=== PATIENT | female | born 1985 | race Caucasian/White ===

== ENCOUNTER 2016-12-05 08:51 | Emergency (ER) | payer OTHER ==
[2016-12-05] MEDS ORDERED: Sodium Chloride 0.9% 1000 ML 1,000 ML IV STA (09:17)
[2016-12-05] MEDS ORDERED: BENADRYL 50 MG/ML IV ONE (09:17)
[2016-12-05] MEDS ORDERED: Zofran 4 MG/2 ML VIAL IV ONE (09:17)
[2016-12-05] MEDS ORDERED: Hydromorphone 1 mg/ml Ampule IV ONE (09:17)
[2016-12-05] MEDS ORDERED: Zofran 4 MG/2 ML VIAL ONE (09:21)
[2016-12-05] MEDS ORDERED: BENADRYL 50 MG/ML ONE (09:21)
[2016-12-05] MEDS ORDERED: Sodium Chloride 0.9% 1000 ML 1,000 ML ONE (09:21)
[2016-12-05] MEDS ORDERED: Hydromorphone 1 mg/ml Ampule ONE (09:21)
[2016-12-05 09:22] LABS: BASOPHIL % 0.5 % (0.0-0.4); Eosinophil % 1.8 % (0.00-5.0); Granulocytes % 58.7 % (36.0-66.0); Mean Cell Volume 88.6 fl (78-100); Platelet Count 212 K/mm3 (150-450); Red Blood Count 4.73 M/mm3 (4.1-5.4); Red Cell Distribution Width 13.4 % (11.5-14.0); White Blood Count 6.1 K/mm3 (4.0-10.5)
--- NOTE | 2016-12-05 09:23 | ERPHSYRPT ---
- History of Present Illness Time Seen by Provider: 12/05/16 09:11 Historian: patient, family Patient Subjective Stated Complaint: PT REPORTS RIGHT FLANK PAIN RADIATING TO UPPER BACK/SHOULDER AREA-DENIES N/V-REPORTS LAST BM 9 DAYS AGO-OTC MEDS NOT EFFECTIVE-REPORTS PAIN INCREASES WITH EATING OR DRINKING Triage Nursing Assessment: PT PINK WARM ET [id number] TENDER TO PALP-BOWEL SOUNDS HYPOACTIVE-RESP EASY ET NONLABORED Physician History: CC: RUQ abd pain Hx: 31 y/o patient of [facility]. She has RUQ abd pain for 5 month, worse in intensity, aching in nature. Harlan worse. Worse with foods. No vomiting. Constipated for 9 days with no results of stool with mag citrate. No fever or chills. Prior C/S X3 and BTL. Normal LMP. No cough. Abdominal Pain Onset Location: RUQ Allergies/Adverse Reactions: No Known Drug Allergies Allergy (Unverified 12/05/16 09:01) Hx Tetanus, Diphtheria Vaccination/Date Given: No Hx Influenza Vaccination/Date Given: No Hx Pneumococcal Vaccination/Date Given: No Immunizations Up to Date: Yes - Review of Systems Constitutional: Malaise, No Fever, No Chills Eyes: No Symptoms Ears, Nose, & Throat: No Symptoms Respiratory: No Cough, No Dyspnea Cardiac: No Chest Pain Abdominal/Gastrointestinal: Abdominal Pain (RUQ), Nausea, Constipation, No Vomiting, No Diarrhea Genitourinary Symptoms: No Dysuria Musculoskeletal: No Back Pain Skin: No Rash Neurological: No Focal Weakness, No Parasthesia All Other Systems: Reviewed and Negative - Past Medical History Pertinent Past Medical History: No - Past Surgical History Past Surgical History: Yes Female Surgical History: Section, Tubal Ligation - Social History Smoking Status: Never smoker Exposure to second hand smoke: No Drug Use: none Patient Lives Alone: No - Female History Hx Last Menstrual Period: LAST MONTH - Nursing Vital Signs Nursing Vital Signs: Initial Vital Signs Temperature 99.0 F 12/05/16 08:58 Pulse Rate 63 12/05/16 08:58 Respiratory Rate 18 12/05/16 08:58 Blood Pressure 122/71 12/05/16 08:58 O2 Sat by Pulse Oximetry 96 12/05/16 08:58 Pain Scale Pain Intensity 5 - Physical Exam General Appearance: alert Eye Exam: PERRL/EOMI Ears, Nose, Throat Exam: normal ENT inspection, moist mucous membranes Neck Exam: normal inspection, non-tender, supple Respiratory Exam: normal breath sounds Cardiovascular Exam: regular rate/rhythm Gastrointestinal/Abdomen Exam: soft, tenderness (RUQ), guarding (mild RUQ), No distention, No mass Back Exam: normal inspection, No CVA tenderness Extremity Exam: normal inspection, normal range of motion Neurologic Exam: alert, 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, cooperative, sensation nml, No motor deficits Skin Exam: warm, dry, No rash SpO2 Interpretation: normal SpO2: 96 Oxygen Delivery: Room Air - Course Nursing assessment & vital signs reviewed: Yes EKG Interpreted by Me: RATE (67), Sinus Rhythm, NORMAL AXIS, NORMAL INTERVALS ( QTc 405), NORMAL QRS, NORMAL ST-T - Radiology Exams AAS X-ray Interpretation: Interpreted by me (no free air or obstructions. Large stool burden.) Ordered Tests: Active Orders 24 hr Category Date Time Status IV Insertion STAT Care 12/05/16 09:11 Active NPO (ED) STAT Care 12/05/16 09:11 Active OBSTR/ACUTE ABDOMEN SERIES Stat Exams 12/05/16 09:17 Taken CBC W DIFF Stat Lab 12/05/16 09:10 Completed CMP Stat Lab 12/05/16 09:10 Completed HCG QUALITATIVE,SERUM Stat Lab 12/05/16 09:10 Completed LIPASE Stat Lab 12/05/16 09:10 Completed UA W/RFX UR CULTURE Stat Lab 12/05/16 09:10 Completed Medication Summary Generic Name Dose Route Start Last Admin Trade Name Freq PRN Reason Stop Dose Admin Sodium Chloride 1,000 mls @ 999 mls/hr 12/05/16 09:17 12/05/16 09:35 Sodium Chloride 0.9% 1000 Ml IV 12/05/16 10:17 999 mls/hr .Q1H1M STA Administration Discontinued Medications Generic Name Dose Route Start Last Admin Trade Name Freq PRN Reason Stop Dose Admin Diphenhydramine HCl 25 mg 12/05/16 09:17 12/05/16 09:36 Benadryl 50 Mg/Ml IV 12/05/16 09:18 25 mg STAT ONE Administration Diphenhydramine HCl Confirm 12/05/16 09:21 Benadryl 50 Mg/Ml Administered 12/05/16 09:22 Dose 50 mg .ROUTE .STK-MED ONE Hydromorphone HCl 1 mg 12/05/16 09:17 12/05/16 09:37 Hydromorphone 1 Mg/Ml Ampule IV 12/05/16 09:18 1 mg STAT ONE Administration Hydromorphone HCl Confirm 12/05/16 09:21 Hydromorphone 1 Mg/Ml Ampule Administered 12/05/16 09:22 Dose 1 mg .ROUTE .STK-MED ONE Sodium Chloride Confirm 12/05/16 09:21 Sodium Chloride 0.9% 1000 Ml Administered 12/05/16 09:22 Dose 1,000 mls @ ud .ROUTE .STK-MED ONE Ondansetron HCl 4 mg 12/05/16 09:17 12/05/16 09:37 Zofran 4 Mg/2 Ml Vial IV 12/05/16 09:18 4 mg STAT ONE Administration Ondansetron HCl Confirm 12/05/16 09:21 Zofran 4 Mg/2 Ml Vial Administered 12/05/16 09:22 Dose 4 mg .ROUTE .STK-MED ONE Lab/Rad Data: Laboratory Result Diagrams 12/05/16 09:10 12/05/16 09:10 Laboratory Results 12/05/16 12/05/16 12/05/16 Range/Units 09:10 09:10 09:10 WBC (4.0-10.5) K/mm3 RBC (4.1-5.4) M/mm3 Hgb (12.0-16.0) gm/dl Hct (35-47) % MCV (78-100) fl MCH (26-32) pg MCHC (32-36) g/dl RDW (11.5-14.0) % Plt Count (150-450) K/mm3 MPV (6-9.5) fl Gran % (36.0-66.0) % Lymphocytes % (24.0-44.0) % Monocytes % (0.0-12.0) % Eosinophils % (0.00-5.0) % Basophils % (0.0-0.4) % Basophils # (0-0.4) Sodium 140 (136-145) mEq/L Potassium 4.1 (3.5-5.1) mEq/L Chloride 106 (98-107) mEq/L Carbon Dioxide 25.1 (21-32) mEq/L Anion Gap 12.5 (5-15) MEQ/L BUN 14 (9-20) mg/dL Creatinine 0.91 (0.55-1.30) mg/dl Estimated GFR > 60 ML/MIN Glucose 90 (70-110) MG/DL Calcium 8.8 (8.5-10.1) mg/dL Total Bilirubin 0.50 (0.2-1.0) mg/dL AST 15 (15-37) U/L ALT 16 (12-78) U/L Alkaline Phosphatase 45 L (46-116) U/L Serum Total Protein 7.1 (6.4-8.2) gm/dL Albumin 3.7 (3.4-5.0) g/dL Lipase 156 (73-393) U/L Serum , Qual NEGATIVE (Negative) Ur Collection Type CLEAN CATCH Urine Color YELLOW (YELLOW) Urine Appearance HAZY (CLEAR) Urine pH 7.0 (5-6) Ur Specific [place] 1.005 (1.005-1.025) Urine Protein NEGATIVE (Negative) Urine Ketones NEGATIVE (NEGATIVE) Urine Blood NEGATIVE (0-5) Dusty/ul Urine Nitrite NEGATIVE (NEGATIVE) Urine Bilirubin NEGATIVE (NEGATIVE) Urine Urobilinogen NORMAL (0-1) mg/dL Ur Leukocyte Esterase NEGATIVE (NEGATIVE) Urine Glucose NEGATIVE (NEGATIVE) mg/dL Specimen Received 12/05/16 0910 12/05/16 Range/Units 09:10 WBC 6.1 (4.0-10.5) K/mm3 RBC 4.73 (4.1-5.4) M/mm3 Hgb 13.7 (12.0-16.0) gm/dl Hct 41.9 (35-47) % MCV 88.6 (78-100) fl MCH 29.0 (26-32) pg MCHC 32.7 (32-36) g/dl RDW 13.4 (11.5-14.0) % Plt Count 212 (150-450) K/mm3 MPV 11.0 H (6-9.5) fl Gran % 58.7 (36.0-66.0) % Lymphocytes % 30.0 (24.0-44.0) % Monocytes % 9.0 (0.0-12.0) % Eosinophils % 1.8 (0.00-5.0) % Basophils % 0.5 (0.0-0.4) % Basophils # 0.03 (0-0.4) Sodium (136-145) mEq/L Potassium (3.5-5.1) mEq/L Chloride (98-107) mEq/L Carbon Dioxide (21-32) mEq/L Anion Gap (5-15) MEQ/L BUN (9-20) mg/dL Creatinine (0.55-1.30) mg/dl Estimated GFR ML/MIN Glucose (70-110) MG/DL Calcium (8.5-10.1) mg/dL Total Bilirubin (0.2-1.0) mg/dL AST (15-37) U/L ALT (12-78) U/L Alkaline Phosphatase (46-116) U/L Serum Total Protein (6.4-8.2) gm/dL Albumin (3.4-5.0) g/dL Lipase (73-393) U/L Serum , Qual (Negative) Ur Collection Type Urine Color (YELLOW) Urine Appearance (CLEAR) Urine pH (5-6) Ur Specific [place] (1.005-1.025) Urine Protein (Negative) Urine Ketones (NEGATIVE) Urine Blood (0-5) Dusty/ul Urine Nitrite (NEGATIVE) Urine Bilirubin (NEGATIVE) Urine Urobilinogen (0-1) mg/dL Ur Leukocyte Esterase (NEGATIVE) Urine Glucose (NEGATIVE) mg/dL Specimen Received - Progress Progress Note: 12/05/16 10:05 Labs reassuring. Sono not readily available due to holiday. She needs GB sonogram. No sign of acute cholecystitis. Discussed need for GB sono, follow up , and constipation treatment. Instr given. She actually has not seen [facility] yet and can follow up locally if she so desires. Referral sheet given. Counseled pt/family regarding: lab results, diagnosis, need for follow-up, rad results - Departure Time of Disposition: 10:06 Departure Disposition: Home Clinical Impression: RUQ abdominal pain, Biliary colic Constipation Qualifiers: Constipation type: slow transit constipation Qualified Code(s): K59.01 - Slow transit constipation Condition: Stable Critical Care Time: No Referrals: DOCTOR,NO FAMILY [Primary Care Provider] - Instructions: Abdominal Pain-Adult, Constipation, General Gallbladder Conditions Additional Instructions: Use miralax/prune juice as instructed. You need to follow up with a primary provider this week and obtain gallbladder sonogram. Low fat diet. No driving today. ABDOMINAL PAIN 1. There are several different causes for abdominal pain, some of which may not be able to be identified on initial examination. 2. The important thing to remember is that bodily functions can change in a short period of time. If you notice any of the following symptoms, return to the emergency department or consult your doctor immediately: A. Worsening pain or no improvement in the next 12 hours. B. Increasing, severe abdominal pain C. Blood in stool D. Black stools E. Persistent vomiting F. Fever or chills or other symptoms Prescriptions: Polyethylene Glycol 3350 [Miralax Powder] 17 g PO DAILY #1 bottle
[2016-12-05 09:36] LABS: Bilirubin NEGATIVE (NEGATIVE); Collection Type CLEAN CATCH; Glucose NEGATIVE (NEGATIVE); Leukocyte Esterase NEGATIVE (NEGATIVE)
[2016-12-05 09:37] LABS: ADD URINE CULTURE? NO (NO); Blood NEGATIVE Ery/ul (0-5); COMPLETE URINE MICROSCOPIC? NO
[2016-12-05 09:42] LABS: ALBUMIN 3.7 g/dL (3.4-5.0); ALKALINE PHOSPHATASE 45 U/L (46-116); ANION GAP 12.5 MEQ/L (5-15); BLOOD UREA NITROGEN 14 mg/dL (9-20); CHLORIDE 106 mEq/L (98-107); Carbon Dioxide 25.1 mEq/L (21-32); Glucose 90 MG/DL (70-110); LIPASE 156 U/L (73-393); Potassium 4.1 mEq/L (3.5-5.1); SGOT/AST 15 U/L (15-37); SGPT/ALT 16 U/L (12-78); SODIUM 140 mEq/L (136-145); Total Protein 7.1 gm/dL (6.4-8.2)
[2016-12-05 10:08] VITALS: O2SAT 96
--- NOTE | 2016-12-05 10:10 | XRAY ---
Indication: Right upper quadrant abdominal pain. Comparison: None 2 views of the abdomen nonacute and nonobstructed with large amount of diffuse scattered colonic fecal debris. Solid organs and osseous structures unremarkable. Single PA chest demonstrates normal heart and lungs with right base calcified granuloma. Bony thorax intact with minimal double curvature scoliosis. Impression: Fecal stasis without obstruction. Normal one view chest.
[2016-12-05 10:18] VITALS: BP 111/66; PULSE 60
== END 2016-12-05 10:17 | disposition home or self-care (01) ==
LOC: ED 08:51
DX: R10.11 Right upper quadrant pain (principal); K80.50 Calculus of bile duct without cholangitis or cholecystitis without obstruction; R11.0 Nausea; K59.00 Constipation, unspecified
CPT/HCPCS: 36000; 36415; 74022; 80053; 81002; 83690; 84703; 85025; 93005; 96360; 96374; 96375; 99284; J1170; J1200; J2405

== ENCOUNTER 2016-12-06 12:11 | Emergency (ER) | payer OTHER ==
[2016-12-06 12:32] VITALS: PULSE 74
[2016-12-06] MEDS ORDERED: Zofran 4 MG/2 ML VIAL IV ONE (12:42)
[2016-12-06] MEDS ORDERED: Sodium Chloride 0.9% 1000 ML 1,000 ML IV STA (12:42)
--- NOTE | 2016-12-06 12:49 | ERPHSYRPT ---
- History of Present Illness Time Seen by Provider: 12/06/16 12:38 Historian: patient Exam Limitations: no limitations Patient Subjective Stated Complaint: vomiting today several times. seen yesterday for same problem. thinks her gallbladder is bad. temp at home 99.1. no bm for 10 days. Triage Nursing Assessment: to room per w/c. skin w/d, color normal. resp easy. abd soft, tender ruq. normal bowel sounds. Physician History: 31 year old female reports to the emergency department complaining of vomiting, inability to tolerate po intake for several days. she has abdominal pain in the ruq, was seen yesterday and told she was constipated, given miralax for constipation. hasn't had a bowel movement in the last 10 days. she denies fever , no hematemesis. Timing/Duration: week(s) Activities at Onset: none Quality: cramping Abdominal Pain Onset Location: RUQ Pain Radiation: no radiation Severity of Pain-Max: moderate Severity of Pain-Current: moderate Modifying Factors: Improves With: nothing Associated Symptoms: nausea, vomiting, No chest pain, No diaphoresis, No diarrhea Allergies/Adverse Reactions: No Known Drug Allergies Allergy (Verified 12/06/16 12:27) Home Medications: Fiber [Fiber Off] 1 each PO DAILY 12/06/16 [History] Hx Tetanus, Diphtheria Vaccination/Date Given: Yes Hx Influenza Vaccination/Date Given: No Hx Pneumococcal Vaccination/Date Given: No - Review of Systems Constitutional: No Fever, No Chills Respiratory: No Cough, No Dyspnea Cardiac: No Chest Pain, No Edema, No Syncope Abdominal/Gastrointestinal: Abdominal Pain, Nausea, Vomiting, Constipation Genitourinary Symptoms: No Dysuria Skin: No Rash All Other Systems: Reviewed and Negative - Past Medical History Pertinent Past Medical History: No - Past Surgical History Past Surgical History: Yes Female Surgical History: Section, Tubal Ligation - Social History Smoking Status: Never smoker Exposure to second hand smoke: No Drug Use: none Patient Lives Alone: No - Female History Hx Last Menstrual Period: one month ago - Nursing Vital Signs Nursing Vital Signs: Initial Vital Signs Temperature 99.4 F 12/06/16 12:19 Pulse Rate 74 12/06/16 12:19 Respiratory Rate 16 12/06/16 12:19 Blood Pressure 134/76 12/06/16 12:19 O2 Sat by Pulse Oximetry 98 12/06/16 12:19 Pain Scale Pain Intensity 7 - Physical Exam General Appearance: no apparent distress, alert Eye Exam: PERRL/EOMI, eyes nml inspection Respiratory Exam: normal breath sounds, lungs clear, No respiratory distress Cardiovascular Exam: regular rate/rhythm, normal heart sounds Gastrointestinal/Abdomen Exam: soft, tenderness (ruq mild), No distention Back Exam: normal inspection, normal range of motion, No CVA tenderness, No vertebral tenderness Extremity Exam: normal inspection, normal range of motion, pelvis stable Skin Exam: normal color, warm, dry SpO2 Interpretation: normal SpO2: 98 Oxygen Delivery: Room Air Ordered Tests: Active Orders 24 hr Category Date Time Status Enema STAT Care 12/06/16 12:42 Active IV Insertion STAT Care 12/06/16 12:42 Active GALLBLADDER [US] Stat Exams 12/06/16 12:43 Completed AMYLASE Stat Lab 12/06/16 12:50 Completed CBC W DIFF Stat Lab 12/06/16 12:50 Completed CMP Stat Lab 12/06/16 12:50 Completed HCG QUALITATIVE,SERUM Stat Lab 12/06/16 12:50 Completed LIPASE Stat Lab 12/06/16 12:50 Completed UA W/RFX UR CULTURE Stat Lab 12/06/16 14:00 Completed Medication Summary Discontinued Medications Generic Name Dose Route Start Last Admin Trade Name Freq PRN Reason Stop Dose Admin Sodium Chloride 1,000 mls @ 999 mls/hr 12/06/16 12:42 12/06/16 13:07 Sodium Chloride 0.9% 1000 Ml IV 12/06/16 13:42 999 mls/hr .Q1H1M STA Administration Sodium Chloride Confirm 12/06/16 13:04 Sodium Chloride 0.9% 1000 Ml Administered 12/06/16 13:05 Dose 1,000 mls @ ud .ROUTE .STK-MED ONE Ondansetron HCl 4 mg 12/06/16 12:42 12/06/16 13:07 Zofran 4 Mg/2 Ml Vial IV 12/06/16 12:43 4 mg STAT ONE Administration Ondansetron HCl Confirm 12/06/16 13:04 Zofran 4 Mg/2 Ml Vial Administered 12/06/16 13:05 Dose 4 mg .ROUTE .STK-MED ONE Lab/Rad Data: Laboratory Result Diagrams 12/06/16 12:50 09/05/17 12:50 Laboratory Results 12/06/16 12/06/16 12/06/16 Range/Units 14:00 12:50 12:50 WBC (4.0-10.5) K/mm3 RBC (4.1-5.4) M/mm3 Hgb (12.0-16.0) gm/dl Hct (35-47) % MCV (78-100) fl MCH (26-32) pg MCHC (32-36) g/dl RDW (11.5-14.0) % Plt Count (150-450) K/mm3 MPV (6-9.5) fl Gran % (36.0-66.0) % Lymphocytes % (24.0-44.0) % Monocytes % (0.0-12.0) % Eosinophils % (0.00-5.0) % Basophils % (0.0-0.4) % Basophils # (0-0.4) Sodium 143 (136-145) mEq/L Potassium 4.4 (3.5-5.1) mEq/L Chloride 108 H (98-107) mEq/L Carbon Dioxide 26.6 (21-32) mEq/L Anion Gap 12.6 (5-15) MEQ/L BUN 9 (9-20) mg/dL Creatinine 0.83 (0.55-1.30) mg/dl Estimated GFR > 60 ML/MIN Glucose 87 (70-110) MG/DL Calcium 9.1 (8.5-10.1) mg/dL Total Bilirubin 0.40 (0.2-1.0) mg/dL AST 15 (15-37) U/L ALT 18 (12-78) U/L Alkaline Phosphatase 44 L (46-116) U/L Serum Total Protein 7.4 (6.4-8.2) gm/dL Albumin 3.8 (3.4-5.0) g/dL Amylase 55 (25-115) U/L Lipase 133 (73-393) U/L Serum , Qual NEGATIVE (Negative) Ur Collection Type CLEAN CATCH Urine Color YELLOW (YELLOW) Urine Appearance CLEAR (CLEAR) Urine pH 6.0 (5-6) Ur Specific [place] 1.005 (1.005-1.025) Urine Protein NEGATIVE (Negative) Urine Ketones NEGATIVE (NEGATIVE) Urine Blood NEGATIVE (0-5) Dusty/ul Urine Nitrite NEGATIVE (NEGATIVE) Urine Bilirubin NEGATIVE (NEGATIVE) Urine Urobilinogen NORMAL (0-1) mg/dL Ur Leukocyte Esterase NEGATIVE (NEGATIVE) Urine Glucose NEGATIVE (NEGATIVE) mg/dL Specimen Received 12/06 141412/06/16 Range/Units 12:50 WBC 6.8 (4.0-10.5) K/mm3 RBC 4.80 (4.1-5.4) M/mm3 Hgb 13.9 (12.0-16.0) gm/dl Hct 42.8 (35-47) % MCV 89.2 (78-100) fl MCH 29.0 (26-32) pg MCHC 32.5 (32-36) g/dl RDW 13.2 (11.5-14.0) % Plt Count 220 (150-450) K/mm3 MPV 10.7 H (6-9.5) fl Gran % 65.8 (36.0-66.0) % Lymphocytes % 27.5 (24.0-44.0) % Monocytes % 5.3 (0.0-12.0) % Eosinophils % 1.3 (0.00-5.0) % Basophils % 0.1 (0.0-0.4) % Basophils # 0.01 (0-0.4) Sodium (136-145) mEq/L Potassium (3.5-5.1) mEq/L Chloride (98-107) mEq/L Carbon Dioxide (21-32) mEq/L Anion Gap (5-15) MEQ/L BUN (9-20) mg/dL Creatinine (0.55-1.30) mg/dl Estimated GFR ML/MIN Glucose (70-110) MG/DL Calcium (8.5-10.1) mg/dL Total Bilirubin (0.2-1.0) mg/dL AST (15-37) U/L ALT (12-78) U/L Alkaline Phosphatase (46-116) U/L Serum Total Protein (6.4-8.2) gm/dL Albumin (3.4-5.0) g/dL Amylase (25-115) U/L Lipase (73-393) U/L Serum , Qual (Negative) Ur Collection Type Urine Color (YELLOW) Urine Appearance (CLEAR) Urine pH (5-6) Ur Specific [place] (1.005-1.025) Urine Protein (Negative) Urine Ketones (NEGATIVE) Urine Blood (0-5) Dusty/ul Urine Nitrite (NEGATIVE) Urine Bilirubin (NEGATIVE) Urine Urobilinogen (0-1) mg/dL Ur Leukocyte Esterase (NEGATIVE) Urine Glucose (NEGATIVE) mg/dL Specimen Received - Progress Progress: improved Progress Note: 12/06/16 14:55 patient rechecked and doing well at this time. had good results with enema, pain has improved. discussed normal lab results, prelim gallbladder u/s negative for stones, possible sludge. needs to establish with a PCP for further testing, possible HIDA scan. - Departure Time of Disposition: 14:56 Departure Disposition: Home Clinical Impression: RUQ abdominal pain, Constipation, Gallbladder sludge Condition: Stable Critical Care Time: No Referrals: DOCTOR,NO FAMILY [Primary Care Provider] - Additional Instructions: push clear liquids. avoid fatty/greasy foods and take zofran prn for nausea. return for fever, severe pain, inability to tolerate po. continue miralax as prescribed yesterday for constipation. you need to establish with a primary care provider as soon as possible for possible further testing such as a HIDA scan. Prescriptions: Ondansetron HCl [Zofran] 4 mg PO TID PRN #20 tablet
[2016-12-06 12:59] LABS: BASOPHIL % 0.1 % (0.0-0.4); Eosinophil % 1.3 % (0.00-5.0); Granulocytes % 65.8 % (36.0-66.0); Lymphocytes % 27.5 % (24.0-44.0); Mean Cell Volume 89.2 fl (78-100); Mean Platelet Volume 10.7 fl (6-9.5); Monocytes % 5.3 % (0.0-12.0); Platelet Count 220 K/mm3 (150-450); Red Cell Distribution Width 13.2 % (11.5-14.0); White Blood Count 6.8 K/mm3 (4.0-10.5)
[2016-12-06] MEDS ORDERED: Sodium Chloride 0.9% 1000 ML 1,000 ML ONE (13:04)
[2016-12-06] MEDS ORDERED: Zofran 4 MG/2 ML VIAL ONE (13:04)
[2016-12-06 13:43] LABS: ALBUMIN 3.8 g/dL (3.4-5.0); ALKALINE PHOSPHATASE 44 U/L (46-116); ANION GAP 12.6 MEQ/L (5-15); BLOOD UREA NITROGEN 9 mg/dL (9-20); CHLORIDE 108 mEq/L (98-107); Carbon Dioxide 26.6 mEq/L (21-32); Glucose 87 MG/DL (70-110); LIPASE 133 U/L (73-393); Potassium 4.4 mEq/L (3.5-5.1); SGOT/AST 15 U/L (15-37); SGPT/ALT 18 U/L (12-78); SODIUM 143 mEq/L (136-145); Total Protein 7.4 gm/dL (6.4-8.2)
[2016-12-06 14:39] LABS: Bilirubin NEGATIVE (NEGATIVE); Blood NEGATIVE Ery/ul (0-5); Collection Type CLEAN CATCH; Glucose NEGATIVE (NEGATIVE); Leukocyte Esterase NEGATIVE (NEGATIVE)
[2016-12-06 14:40] LABS: ADD URINE CULTURE? NO (NO); COMPLETE URINE MICROSCOPIC? NO
--- NOTE | 2016-12-06 15:13 | XRAY ---
Exam: Gallbladder ultrasound from 12/06/2016. Comparison: None. Indication: Abdominal pain, vomiting. Findings: The gallbladder appears of normal size. There is some movable, intraluminal biliary sludge within the posterior dependent portion of the gallbladder lumen. Some concomitant tiny specular reflectors could represent tiny associated gallstones. However, these do not shadow, perhaps due to their small size. The gallbladder wall measures 2 mm which is normal. No pericholecystic edema or fluid is seen. The proximal common bile the measures 5.3 mm which is within normal limits. No intrahepatic biliary duct distention is seen. The liver appears of unremarkable size. No intrahepatic biliary duct distention is seen. The right kidney measures 10.5 cm in length and reveals no mass or hydronephrosis. The pancreas reveals no significant abnormality. Impression: 1. There is a mild amount of movable intraluminal biliary sludge within the posterior dependent portion of the gallbladder. Some concomitant tiny gallstones mixed in with the sludge are difficult to exclude. 2. No gallbladder enlargement, gallbladder wall thickening, or biliary duct distention is seen.
[2016-12-06 15:30] VITALS: BP 112/27; O2SAT 100
== END 2016-12-06 15:32 | disposition home or self-care (01) ==
LOC: ED 12:11
DX: R10.11 Right upper quadrant pain (principal); K59.00 Constipation, unspecified; K82.8 Other specified diseases of gallbladder
CPT/HCPCS: 36000; 36415; 76705; 80053; 81002; 82150; 83690; 84703; 85025; 96360; 96374; 99284; J2405

== ENCOUNTER 2017-01-16 10:59 | Day surgery (SDC) | payer OTHER ==
--- NOTE | 2017-01-16 09:24 | HP ---
DATE OF SURGERY: 01/16/2017 HISTORY OF PRESENT ILLNESS: The patient is a 31 year-old the past five months or so had some right upper quadrant radiating to the shoulder as well as gas and bloating reported feeling worse recently, worse with greasy food and spicy foods. Ultrasound did not show any gallstones, did have some sludge. The HIDA scan had normal ejection fraction 96%. No prior endoscopy. PAST MEDICAL HISTORY: She denies any chronic illnesses. She has had some anxiety and depression. MEDICATIONS: Celexa. ALLERGIES: NKDA. PAST SURGICAL HISTORY: Three sections. FAMILY HISTORY: Cancer. Negative for celiac disease, inflammatory bowel disease. SOCIAL HISTORY: No smoking or alcohol abuse. REVIEW OF SYSTEMS: Twelve systems reviewed per admission assessment. No chest pain or palpitations other systems negative or noncontributory as above and per preadmission questionnaire. PHYSICAL EXAMINATION: GENERAL: No acute distress. HEENT: Sclerae nonicteric. NECK: No JVD. CHEST: Equal excursion, nonlabored breathing. CVS: Regular rate and rhythm. ABDOMEN: Soft. No peritoneal signs. Some mild tenderness. EXTREMITIES: No significant edema. NEURO: Alert, moving extremities symmetrically. No gross motor deficits noted. IMPRESSION: Right upper quadrant pain unclear etiology. I feel she needs to be evaluated for gastritis, ulcer disease, esophagitis or other etiology. If negative, she may need to consider cholecystectomy as she had hyperkalemic, chronic cholecystitis. Either way she needs upper endoscopy possible biopsy first. Risks and benefits explained in detail including but not limited to bleeding or infection, small risk of bowel injury or perforation possibly requiring open procedure, small risk of missed or nondiagnosis or incomplete exam possibly requiring barium enema, other studies or procedures, general risk of anesthesia or sedation. She understands and agrees to the planned procedure and will proceed with upper endoscopy possible biopsy as an outpatient.
[2017-01-16] MEDS ORDERED: Versed 2 MG/2 ML Injection IV ONE (11:00)
[2017-01-16] MEDS ORDERED: DIPRIVAN 200 MG/20 ML IV ONE (11:00)
[2017-01-16] MEDS ORDERED: Lactated Ringers 1,000 ML IV ONE (11:07)
[2017-01-16] MEDS ORDERED: Lactated Ringers 1,000 ML IV SCH (11:30)
[2017-01-16 12:34] VITALS: O2SAT 100
[2017-01-16 13:17] VITALS: BP 122/70; PULSE 57
--- NOTE | 2017-01-16 15:17 | OP ---
SURGERY DATE/TIME: 01/16/2017 1150 PREOPERATIVE DIAGNOSIS: Right upper quadrant upper abdominal pain. Gallbladder work up negative for gallstones. HIDA scan no evidence of decreased ejection fraction. POSTOPERATIVE DIAGNOSIS: Mild gastritis. PROCEDURES: 1) EGD with cold biopsy of small bowel to evaluate for celiac sprue. 2) Cold biopsy of the antrum to evaluate for Helicobacter pylori. SURGEON: Dr. Jann Flynn. ANESTHESIA: MAC. ESTIMATED BLOOD LOSS: Minimal. INDICATIONS: As noted above. Risks and benefits explained in detail and not limited to and consent obtained. DESCRIPTION OF PROCEDURE AND FINDINGS: The patient is taken to the operating room. MAC anesthesia introduced. After official time out and no disagreement with planned procedure the bite block positioned. Video gastroscope easily passed down the esophagus through the patent pylorus to the junction of the second and third portion of the duodenum. On withdrawal of the scope, cold biopsy taken of the small bowel. There was a little bit of flattening of the folds but no signs of any geri ulcers or other mucosal lesions given her vague symptoms. Cold biopsy taken to evaluate for celiac disease in the small bowel. Good hemostasis noted. The scope pulled back in the stomach. She had some minimal to mild gastritis. Cold biopsy taken to evaluate for Helicobacter pylori. Good hemostasis is noted. On retroflex there is no significant hiatal hernia. Gastroesophageal junction seen to be fairly tight against the scope. The scope is straightened. The gastroesophageal junction noted to be about 40 cm. Again, small bowel had been biopsied for sprue. Antrum biopsied for Helicobacter pylori. Otherwise the scope pulled back to gastroesophageal junction noted to be at 40 cm. Z-line was crisp. No signs of any geri esophagitis. No signs of any Guo's. No signs of any other obvious mucosal lesions. The remainder of the esophagus grossly unremarkable. The scope is withdrawn. The patient tolerated the procedure well. Findings discussed with the family out in the waiting area. I will see her back in the office next week to see how she does. If she remains symptomatic will discuss options as she does have some sludge and she could have a hyperkinetic gallbladder. Option of considering cholecystectomy versus referral for endoscopic ultrasound or other work up. I will see her back in the office next week.
== END 2017-01-16 13:20 | disposition home or self-care (01) ==
LOC: SDC 10:59
PROVIDERS: ATTEND Surgery
PROC: 0DB78ZX Excision of Stomach, Pylorus, Via Natural or Artificial Opening Endoscopic, Diagnostic (ICD-10-PCS; principal; 2017-01-16)
PROC: 0DB88ZX Excision of Small Intestine, Via Natural or Artificial Opening Endoscopic, Diagnostic (ICD-10-PCS; 2017-01-16)
DX: K29.70 Gastritis, unspecified, without bleeding (principal)
CPT/HCPCS: 00740; 36415; 88305; J2250; J2704

== ENCOUNTER 2017-05-15 00:49 | Emergency (ER) | payer OTHER ==
--- NOTE | 2017-05-15 01:22 | ERPHSYRPT ---
- History of Present Illness Time Seen by Provider: 05/15/17 01:02 Source: patient Exam Limitations: no limitations Patient Subjective Stated Complaint: pt states she slipped on the ice today and hurt her lt foot. states pain radiates up leg to the knee Triage Nursing Assessment: pt alert and oriented, asnwers questions approp. pt transfer from whellchair to stretcher with no assist, nwb on lt leg. respirations nonlabored withlungs cta. skin pink warm and dry. edema ntoed to lt foot and ankle. pedal pulse, cap refill, sensation wnl. Physician History: ABOUT 9 HOURS AGO AT WORK([employer] IN [place]) PT WAS OUTSIDE AND SLIPPED ON THE ICE WITH RESULTANT PAIN IN THE LEFT LOWER BACK, LEFT KNEE, LEFT LEG AND LEFT ANKLE; DENIES NUMBNESS OF THE LEFT FOOT; DENIES PRIOR INJURY TO THE LEFT LOWER EXTREMITY OR LOWER BACK. PT DENIES CHEST PAIN, ABDOMINAL PAIN, NAUSEA, VOMITING, HEADACHE, NECK PAIN. Allergies/Adverse Reactions: No Known Drug Allergies Allergy (Verified 05/15/17 01:07) Hx Tetanus, Diphtheria Vaccination/Date Given: Yes Hx Influenza Vaccination/Date Given: Yes Hx Pneumococcal Vaccination/Date Given: No Immunizations Up to Date: Yes - Review of Systems Respiratory: No Dyspnea Cardiac: No Chest Pain Abdominal/Gastrointestinal: No Abdominal Pain, No Nausea, No Vomiting Musculoskeletal: Back Pain (LOWER), Other (LEFT KNEE, LEG AND ANKLE PAIN SINCE YESTERDAY.), No Neck Pain Neurological: No Headache All Other Systems: Reviewed and Negative - Past Medical History Pertinent Past Medical History: Yes Neurological History: No Pertinent History ENT History: No Pertinent History Cardiac History: No Pertinent History Respiratory History: No Pertinent History Endocrine Medical History: No Pertinent History Musculoskeletal History: No Pertinent History GI Medical History: No Pertinent History History: No Pertinent History Psycho-Social History: Anxiety, Depression Female Reproductive Disorders: No Pertinent History - Past Surgical History Past Surgical History: Yes Neuro Surgical History: No Pertinent History Cardiac: No Pertinent History Respiratory: No Pertinent History Gastrointestinal: No Pertinent History Genitourinary: No Pertinent History Musculoskeletal: No Pertinent History Female Surgical History: Section, Tubal Ligation, Other Other Surgical History: LEEP procedure - Social History Smoking Status: Current some day smoker How long have you smoked: 12 yrs Exposure to second hand smoke: No Drug Use: none Patient Lives Alone: No - Female History Hx Last Menstrual Period: apr 24- Hx Now: No - Nursing Vital Signs Nursing Vital Signs: Initial Vital Signs Temperature 98.2 F 05/15/17 00:59 Pulse Rate 82 05/15/17 00:59 Respiratory Rate 18 05/15/17 00:59 Blood Pressure 128/85 05/15/17 00:59 O2 Sat by Pulse Oximetry 99 05/15/17 00:59 Pain Scale Pain Intensity 8 - Celina Coma Score Best Eye Response (Ashanti): (4) open spontaneously Best Verbal Response (Celina): (5) oriented Best Motor Response (Ashanti): (6) obeys commands Ashanti Total: 15 - Physical Exam General Appearance: alert Head Injury: no evidence of injury Eye Exam: PERRL/EOMI ENT Exam: airway nml, nml ext.inspection, No clear fluid (ears), No clear fluid (nose) Neck Exam: trachea midline, full range of motion, No tenderness Respiratory/Chest Exam: normal breath sounds Cardiovascular Exam: normal heart sounds Gastrointestinal Exam: soft, normal bowel sounds Back Exam: normal range of motion, other (MILD LEFT LOWER PARAVERTEBRAL MUSCLE TENDERNESS.) Extremity Exam: tenderness (MILD TENDERNESS OF THE LEFT ANKLE AND LEFT KNEE; FLEXION OF THE LEFT KNEE LIMITED TO 90 DEGREES WITH FULL EXTENSION; LEFT ANKLE HAS LIMITED ROM AND MILD EDEMA.) Peripheral Pulses: dorsalis-pedis (R): 3+, dorsalis-pedis (L): 3+ Neurologic Exam: alert, cooperative, sensation nml Skin Exam: warm, dry SpO2 Interpretation: normal SpO2: 99 Oxygen Delivery: Room Air - Course Nursing assessment & vital signs reviewed: Yes - Radiology Exams Left Knee X-ray Interpretation: Teleradiologist Report (NORMAL LEFT KNEE X-RAYS.) Left Ankle X-ray Interpretation: Teleradiologist Report (ANKLE SOFT TISSUE SWELLING. NO FRACTURE.) Left Lower Leg X-ray Interpretation: Interpreted by me, No Fracture L-Spine X-ray Interpretation: Interpreted by me, No Fracture Ordered Tests: Active Orders 24 hr Category Date Time Status Won Bandage Application -[facility] STAT Care 05/15/17 01:19 Active Crutches STAT Care 05/15/17 01:19 Active ANKLE (3 VIEWS) Stat Exams 05/15/17 01:19 Taken KNEE (3 VIEWS) Stat Exams 05/15/17 01:20 Taken LOWER LEG Stat Exams 05/15/17 02:29 Taken LUMBAR COMPLETE (MIN 4 VIEWS) Stat Exams 05/15/17 01:20 Taken Medication Summary Discontinued Medications Generic Name Dose Route Start Last Admin Trade Name Freq PRN Reason Stop Dose Admin Magnesium Sulfate/Dextrose 100 mls @ 200 mls/hr 05/15/17 01:10 05/15/17 01:39 Magnesium 1 Gm / 100 Ml D5w IV 05/15/17 01:39 Not Given STAT ONE Ibuprofen 600 mg 05/15/17 01:19 05/15/17 01:35 Motrin 600 Mg PO 05/15/17 01:20 600 mg STAT ONE Administration Ibuprofen Confirm 05/15/17 01:34 Motrin 600 Mg Administered 05/15/17 01:35 Dose 600 mg .ROUTE .STK-MED ONE - Departure Time of Disposition: 03:22 Departure Disposition: Home Clinical Impression: LEFT ANKLE SPRAIN, LEFT KNEE SPRAIN, LUMBAR SPRAIN Condition: Stable Critical Care Time: No Referrals: CON ZACARIAS [Primary Care Provider] - Instructions: Ankle Sprain, Knee Sprain (DC), Low Back Pain (DC) Additional Instructions: FOLLOW UP WITH PRIVATE DOCTOR TOMORROW. ELEVATE LEFT ANKLE ABOVE HEART LEVEL FOR 24 HOURS. WON WRAP TO LEFT KNEE AND LEFT ANKLE FOR 4 DAYS. NO WEIGHT BEARING ON LEFT FOOT FOR THE NEXT 4 DAYS. USE CRUTCHES FOR THE NEXT 2 WEEKS. Prescriptions: Naproxen [Naprosyn] 500 mg PO Q12H PRN PRN #20 tablet PRN Reason: Pain
[2017-05-15] MEDS ORDERED: MOTRIN 600 MG ONE (01:34)
[2017-05-15] MEDS: MOTRIN 600 MG PO ONE (01:35)
[2017-05-15] MEDS: Magnesium 1 Gm / 100 Ml D5W*** 100 ML IV ONE (01:39)
[2017-05-15] MEDS ORDERED: TYLENOL 325 MG ONE (03:33)
[2017-05-15] MEDS: TYLENOL 325 MG PO ONE (03:34)
[2017-05-15 04:06] VITALS: BP 127/66; PULSE 72; O2SAT 97
--- NOTE | 2017-05-15 08:54 | XRAY ---
Indication: Pain following fall. Comparison: None 2 views of the left lower leg demonstrates tiny heel spurs and tiny posterior talus accessory ossicle. No other bony, articular, or soft tissue abnormalities.
--- NOTE | 2017-05-15 08:54 | XRAY ---
Indication: Pain following fall. Comparison: None 5 views of the lumbar spine demonstrates 5 lumbar vertebral segments with vertebral body heights and disc spaces maintained. No acute fracture, subluxation, or soft tissue abnormalities.
--- NOTE | 2017-05-15 08:54 | XRAY ---
Indication: Pain following fall. Comparison: None 3 views of the left knee demonstrates normal bones, articulation, and soft tissues. Comment: Preliminary interpretation was made by [facility]. No discrepancy.
--- NOTE | 2017-05-15 08:56 | XRAY ---
Indication: Pain following fall. Comparison: None 3 views of the left ankle demonstrates anterolateral soft tissue swelling, tiny heel spurs, and tiny posterior talus accessory ossicle. No other bony, articular, or soft tissue abnormalities. Comment: Preliminary interpretation was made by [facility]. No discrepancy.
== END 2017-05-15 03:45 | disposition home or self-care (01) ==
LOC: ED 00:49
DX: S93.402A Sprain of unspecified ligament of left ankle, initial encounter (principal); S83.92XA Sprain of unspecified site of left knee, initial encounter; S33.5XXA Sprain of ligaments of lumbar spine, initial encounter; W00.0XXA Fall on same level due to ice and snow, initial encounter; Y93.89 Activity, other specified; Y92.524 Gas station as the place of occurrence of the external cause; F41.8 Other specified anxiety disorders; Z72.0 Tobacco use
CPT/HCPCS: 72110; 73562; 73590; 73610; 99283; A9270-GY

== ENCOUNTER 2017-06-20 21:51 | Emergency (ER) | payer OTHER ==
[2017-06-20 22:18] VITALS: BP 116/80; PULSE 93; O2SAT 100
[2017-06-20] MEDS ORDERED: TORAdol 30 mg Injection IM ONE (23:01)
[2017-06-20] MEDS ORDERED: TORAdol 30 mg Injection ONE (23:05)
--- NOTE | 2017-06-20 23:09 | ERPHSYRPT ---
- History of Present Illness Time Seen by Provider: 06/20/17 22:58 Source: patient Exam Limitations: no limitations Patient Subjective Stated Complaint: pain in right outer aspect of knee x 2 weeks. denies injury Triage Nursing Assessment: pain to right knee to the lateral side. no obvious injury. pt states unsure of injury. pain with walking and moving. no obvious swelling noted. + pedal pulse presnt. Physician History: 31-year-old white female arrives with complaint of pain in her right knee symptoms for one month. She denies obvious injury. She states she has seen her doctors secondary to this in the past. She does state that she had an x-ray of her knee. She apparently had been on Mobic, but is no longer on this. Past medical history includes anxiety, depression Past surgical history includes , tubal, LEEP procedure Method of Injury: unknown Occurred: other (symptoms for a month) Severity of Pain-Max: moderate Severity of Pain-Current: moderate Lower Extremities Pain: knee: right Modifying Factors: Improves With: nothing Associated Symptoms: none Allergies/Adverse Reactions: No Known Drug Allergies Allergy (Verified 05/15/17 01:07) Hx Tetanus, Diphtheria Vaccination/Date Given: Yes Hx Influenza Vaccination/Date Given: Yes Hx Pneumococcal Vaccination/Date Given: No - Review of Systems Constitutional: No Fever, No Chills Eyes: No Symptoms Ears, Nose, & Throat: No Symptoms Respiratory: No Cough, No Dyspnea Cardiac: No Chest Pain, No Edema, No Syncope Abdominal/Gastrointestinal: No Abdominal Pain, No Nausea, No Vomiting, No Diarrhea Genitourinary Symptoms: No Dysuria Musculoskeletal: Joint Pain (right knee pain for one month) Skin: No Rash Neurological: No Dizziness, No Focal Weakness, No Sensory Changes Psychological: No Symptoms Endocrine: No Symptoms All Other Systems: Reviewed and Negative - Past Medical History Pertinent Past Medical History: Yes Neurological History: No Pertinent History ENT History: No Pertinent History Cardiac History: No Pertinent History Respiratory History: No Pertinent History Endocrine Medical History: No Pertinent History Musculoskeletal History: No Pertinent History GI Medical History: No Pertinent History History: No Pertinent History Psycho-Social History: Anxiety, Depression Female Reproductive Disorders: No Pertinent History - Past Surgical History Past Surgical History: Yes Neuro Surgical History: No Pertinent History Cardiac: No Pertinent History Respiratory: No Pertinent History Gastrointestinal: No Pertinent History Genitourinary: No Pertinent History Musculoskeletal: No Pertinent History Female Surgical History: Section, Tubal Ligation, Other Other Surgical History: LEEP procedure - Social History Smoking Status: Never smoker How long have you smoked: 12 yrs Exposure to second hand smoke: No Drug Use: none Patient Lives Alone: No - Female History Hx Now: No - Nursing Vital Signs Nursing Vital Signs: Initial Vital Signs Temperature 97.8 F 06/20/17 22:10 Pulse Rate 93 H 06/20/17 22:10 Respiratory Rate 18 06/20/17 22:10 Blood Pressure 116/80 06/20/17 22:10 O2 Sat by Pulse Oximetry 100 06/20/17 22:10 Pain Scale Pain Intensity 7 - Physical Exam General Appearance: alert Eyes, Ears, Nose, Throat Exam: moist mucous membranes Neck Exam: non-tender, supple Cardiovascular/Respiratory Exam: chest non-tender, normal breath sounds, regular rate/rhythm, no respiratory distress Gastrointestinal/Abdominal Exam: non-tender, guarding Back Exam: normal inspection, No vertebral tenderness Hips Exam: bilateral: non-tender, normal inspection, normal range of motion, no evidence of injury Legs Exam: bilateral leg: non-tender, normal inspection, normal range of motion , no evidence of injury Knees Exam: right knee: other (he had pulled him patient with decreased ROM right knee secondary to pain, patient complains of pain with anterior palpation of the right knee, anterior drawer stable, right knee stable to medial collatereal ligament stress stable to lateral collateral ligament stress), left knee: non-tender, normal inspection, normal range of motion Ankle Exam: bilateral ankle: non-tender, normal inspection, normal range of motion, no evidence of injury Foot Exam: bilateral foot: non-tender, normal inspection, normal range of motion , no evidence of injury DTR - Lower Extremities Exam: ankle (R): 2+, ankle (L): 2+ Neuro/Tendon Exam: normal sensation, normal motor functions Mental Status Exam: alert, 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, cooperative Skin Exam: normal color, warm, dry SpO2 Interpretation: normal (100%) SpO2: 100 Oxygen Delivery: Room Air - Course Nursing assessment & vital signs reviewed: Yes - Radiology Exams Right Knee X-ray Interpretation: Interpreted by me, Negative, No Fracture, No Subluxation Ordered Tests: Active Orders 24 hr Category Date Time Status Immobilizer STAT Care 06/20/17 23:23 Active KNEE (3 VIEWS) Stat Exams 06/20/17 23:02 Taken Medication Summary Discontinued Medications Generic Name Dose Route Start Last Admin Trade Name Cristi PRN Reason Stop Dose Admin Ketorolac Tromethamine 60 mg 06/20/17 23:01 06/20/17 23:06 Toradol 30 Mg Injection IM 06/20/17 23:02 60 mg STAT ONE Administration Ketorolac Tromethamine Confirm 06/20/17 23:05 Toradol 30 Mg Injection Administered 06/20/17 23:06 Dose 60 mg .ROUTE .STK-MED ONE - Progress Progress: improved Progress Note: 06/20/17 23:07 31-year-old white female arrives with complaint of pain in her right knee for a month. Patient apparently has seen her family doctor for this but she states the pain continues. On physical examination patient complains of pain pretty much wherever I touch her knee both anterior medially and laterally. She does not appear to have edema. The knee is not hot. Knee appears to be stable to medial collateral ligament stress lateral collateral ligament stress posterior drawer and anterior drawer are both negative. Will obtain x-ray of the patient's knee. 06/20/17 23:24 X-ray patient's right knee is negative for fracture negative for dislocation ( my read) will place a knee immobilizer on the patient's right knee place patient on Naprosyn. Patient to ice her right knee 24-48 hours follow-up with her family doctor. Return for acute distress or for severe symptoms. . 06/20/17 23:43 Patient is given crutches - Departure Time of Disposition: 23:25 Departure Disposition: Home Clinical Impression: Right knee pain Qualifiers: Chronicity: unspecified Qualified Code(s): M25.561 - Pain in right knee Strain of right knee Qualifiers: Encounter type: initial encounter Qualified Code(s): S86.911A - Strain of unspecified muscle(s) and tendon(s) at lower leg level, right leg, initial encounter Condition: Fair Critical Care Time: No Referrals: CON ZACARIAS [Primary Care Provider] - Additional Instructions: Return home. Ice to right knee 24-48 hours. Use immobilizer right knee 48-72 hours longer if pain persists. Follow-up with your family doctor if symptoms are worse no better 48 hours or persist longer than one week due to the fact that this is been going on for a month consider follow-up with your family doctor. Naprosyn 500 mg orally twice a day with food as needed for pain. Return for acute distress or for severe symptoms. crutches weightbearing as tolerated Prescriptions: Naproxen 500 mg [Naprosyn 500 MG] 500 mg PO BID #20 tablet
--- NOTE | 2017-06-21 09:07 | XRAY ---
Indication: Right knee pain. Comparison: March 08, 2017. 3 views of the right knee now demonstrates tiny suprapatellar spurring. No other bony, articular, or soft tissue abnormalities.
== END 2017-06-20 23:57 | disposition home or self-care (01) ==
LOC: ED 21:51
DX: M25.561 Pain in right knee (principal); S86.911A Strain of unspecified muscle(s) and tendon(s) at lower leg level, right leg, initial encounter; F41.8 Other specified anxiety disorders
CPT/HCPCS: 73562; 96372; 99284; J1885; L1830

== ENCOUNTER 2018-04-07 21:15 | Emergency (ER) | payer BC ==
[2018-04-07] MEDS ORDERED: Augmentin 875-125 Tablet PO ONE (22:51)
--- NOTE | 2018-04-07 22:55 | ERPHSYRPT ---
- History of Present Illness Time Seen by Provider: 04/07/18 22:15 Source: patient Patient Subjective Stated Complaint: pt is alert and oriented. pt is ambulatory with a steady gait. pt states she has had a cough, fever, congestion, body aches , chills, fatigue, headache, sore throat, nausea with no vomiting. pt is not in any obvious distress. pt is sniffling, pt states that she has been coughing up yellowish, green mucous. Triage Nursing Assessment: see abpve Physician History: PATIENT COMPLAINS OF A PRODUCTIVE COUGH, NASAL CONGESTION ASSOCIATED WITH GENERALIZED ACHES, FEVER AND CHILLS. DENIES CHEST PAIN OR DYSPNEA. Timing/Duration: day(s) Cough Quality/Degree: productive cough Possible Cause: no prior episodes Associated Symptoms: fever, chills, cough, nasal congestion International travel in last 2 weeks: No Allergies/Adverse Reactions: No Known Drug Allergies Allergy (Verified 05/15/17 01:07) Home Medications: Buprenorphine HCl/Naloxone HCl [Suboxone 8 mg-2 mg Tablet Sl] 1 each SL DAILY [History] Hx Tetanus, Diphtheria Vaccination/Date Given: Yes Hx Influenza Vaccination/Date Given: Yes (January 2018) Hx Pneumococcal Vaccination/Date Given: No Immunizations Up to Date: Yes - Review of Systems Constitutional: Fever, Chills Eyes: No Symptoms Ears, Nose, & Throat: No Symptoms Respiratory: Cough Cardiac: No Symptoms Abdominal/Gastrointestinal: No Symptoms Genitourinary Symptoms: No Symptoms Musculoskeletal: No Symptoms - Past Medical History Pertinent Past Medical History: Yes Neurological History: No Pertinent History ENT History: No Pertinent History Cardiac History: No Pertinent History Respiratory History: No Pertinent History Endocrine Medical History: No Pertinent History Musculoskeletal History: No Pertinent History GI Medical History: No Pertinent History History: No Pertinent History Psycho-Social History: Anxiety, Depression Female Reproductive Disorders: No Pertinent History - Past Surgical History Past Surgical History: Yes Neuro Surgical History: No Pertinent History Cardiac: No Pertinent History Respiratory: No Pertinent History Gastrointestinal: No Pertinent History Genitourinary: No Pertinent History Musculoskeletal: No Pertinent History Female Surgical History: Section, Tubal Ligation, Other Other Surgical History: LEEP procedure - Social History Smoking Status: Former smoker How long have you smoked: 12 yrs Exposure to second hand smoke: No Drug Use: none Patient Lives Alone: No - Female History Hx Last Menstrual Period: 03/27/18 Hx Now: No - Nursing Vital Signs Nursing Vital Signs: Initial Vital Signs Temperature 98.5 F 04/07/18 22:07 Pulse Rate 73 04/07/18 22:07 Respiratory Rate 16 04/07/18 22:07 Blood Pressure 130/74 04/07/18 22:07 O2 Sat by Pulse Oximetry 99 04/07/18 22:07 Pain Scale Pain Intensity 6 - Physical Exam General Appearance: no apparent distress, alert Eye Exam: PERRL/EOMI, eyes nml inspection Ears, Nose, Throat Exam: normal ENT inspection, TMs normal, pharynx normal, moist mucous membranes Neck Exam: normal inspection, non-tender, supple, full range of motion Respiratory Exam: normal breath sounds, lungs clear, No respiratory distress Cardiovascular Exam: regular rate/rhythm, normal heart sounds Gastrointestinal/Abdomen Exam: soft, No tenderness Back Exam: normal inspection, No CVA tenderness, No vertebral tenderness Extremity Exam: normal inspection, normal range of motion Neurologic Exam: alert, 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, cooperative, normal mood/affect, sensation nml, No motor deficits Skin Exam: normal color, warm, dry, No rash Lymphatic Exam: No adenopathy SpO2 Interpretation: normal SpO2: 100 Oxygen Delivery: Room Air Ordered Tests: Active Orders 24 hr Category Date Time Status CHEST 1 VIEW (PORTABLE) Stat Exams 04/07/18 22:51 Taken Medication Summary Discontinued Medications Generic Name Dose Route Start Last Admin Trade Name Freq PRN Reason Stop Dose Admin Amoxicillin/Clavulanate Potassium 875 mg 04/07/18 22:51 04/07/18 22:59 Augmentin 875-125 Tablet PO 04/07/18 22:52 875 mg STAT ONE Administration Amoxicillin/Clavulanate Potassium Confirm 04/07/18 22:57 Augmentin 875-125 Tablet Administered 04/07/18 22:58 Dose 875 mg .ROUTE .STK-MED ONE Lab/Rad Data: Laboratory Results 04/07/18 04/07/18 Range/Units Unknown Unknown Influenza Type A Ag NEGATIVE (NEGATIVE) Influenza Type B Ag NEGATIVE (NEGATIVE) RSV (PCR) NEGATIVE (Negative) Group A Strep Antibody NEGATIVE (NEGATIVE) - Progress Progress Note: 04/08/18 00:41 ADMINISTERED AUGMENTIN 875MG ORALLY. RSV STREP SCREEN AND RESPIRATORY PANEL NEGATIVE - Departure Time of Disposition: 01:00 Departure Disposition: Home Clinical Impression: ACUTE BRONCHITIS Condition: Stable Critical Care Time: No Referrals: CON ZACARIAS [Primary Care Provider] - Additional Instructions: CONTINUE OVER THE COUNTER COUGH SYRUP NEEDED. ANTIBIOTIC AUGMENTIN 875MG TWICE DAILY FOR 10 DAYS. TYLENOL OR MOTRIN FOR FEVER OR CHILLS. CONSULT YOUR PRIMARY CARE PROVIDER IN 1 WEEK. Prescriptions: Amox Tr/Potass Clav. 875 mg [Augmentin 875-125 Tablet] 875 mg PO BID #14 tablet
[2018-04-07] MEDS ORDERED: Augmentin 875-125 Tablet ONE (22:57)
[2018-04-08 00:34] LABS: INFLUENZA A NEGATIVE (NEGATIVE); INFLUENZA B NEGATIVE (NEGATIVE); RESPIRATORY SYNCTIAL VIRUS NEGATIVE (Negative)
[2018-04-08 00:37] VITALS: BP 114/85; PULSE 70
[2018-04-08 00:44] VITALS: O2SAT 100
--- NOTE | 2018-04-08 08:58 | XRAY ---
Indication: Cough. Comparison: April 11, 2017. Portable chest remains clear again with incidental right base calcified granuloma. Heart and mediastinal structures within normal limits. Bony thorax intact. Impression: Stable nonacute chest again with evidence for old granulomatous disease.
== END 2018-04-08 01:03 | disposition home or self-care (01) ==
LOC: ED 21:15
DX: J20.9 Acute bronchitis, unspecified (principal); Z79.899 Other long term (current) drug therapy
CPT/HCPCS: 71045; 87631; 87651; 99284; A9270-GY

== ENCOUNTER 2018-05-19 23:46 | Emergency (ER) | payer BC ==
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
[2018-05-20] MEDS ORDERED: VITAMIN B-1 100 MG PO ONE (01:19)
[2018-05-20 01:46] LABS: BASOPHIL % 0.3 % (0.0-0.4); Basophil (Absolute #) 0.02 (0-0.4); Eosinophil % 0.9 % (0.00-5.0); Eosinophil (Absolute #) 0.06 (0-0.5); Granulocyte Absolute (ANC) 3.41 (1.4-6.9); Granulocytes % 54.1 % (36.0-66.0); Hematocrit 42.5 % (35-47); Hemoglobin 14.2 gm/dl (12.0-16.0); Lymphocyte (Absolute #) 2.29 (1.0-4.6); Lymphocytes % 36.2 % (24.0-44.0); Mean Corpuscular Hemoglobin 28.4 pg (26-32); Mean Corpuscular Hgb Concent. 33.4 g/dl (32-36); Mean Platelet Volume 10.1 fl (6-9.5); Monocyte (Absolute #) 0.54 (0.0-1.3); Monocytes % 8.5 % (0.0-12.0); Platelet Count 282 K/mm3 (150-450); Red Cell Distribution Width 13.4 % (11.5-14.0); White Blood Count 6.3 K/mm3 (4.0-10.5)
[2018-05-20 02:09] LABS: ALBUMIN 5.1 g/dL (3.5-5.0); ALKALINE PHOSPHATASE 53 U/L (38-126); ANION GAP 17.1 MEQ/L (5-15); BLOOD UREA NITROGEN 7 mg/dL (7-17); CHLORIDE 106 mmol/L (98-107); Calcium 9.7 mg/dL (8.4-10.2); Carbon Dioxide 28 mmol/L (22-30); Creatinine 1 0.78 mg/dL (0.52-1.04); ETHYL ALCOHOL 245 mg/dL (0-10); Glucose 102 mg/dL (74-106); Potassium 4.3 mmol/L (3.5-5.1); SGOT/AST 31 U/L (14-36); SGPT/ALT 14 U/L (0-35); SODIUM 147 mmol/L (137-145)
[2018-05-20 02:35] LABS: ACETAMINOPHEN < 10 ug/ml (10-30); SALICYLATE < 1.0 mg/dL (2-20)
[2018-05-20 02:39] LABS: TSH, 3RD Generation 1.61 mIU/L (0.47-4.68)
[2018-05-20 03:27] VITALS: BP 111/79; PULSE 83
[2018-05-20 03:27] LABS: Appearance CLEAR (CLEAR); Bilirubin NEGATIVE (NEGATIVE); Blood NEGATIVE Ery/ul (0-5); Glucose NEGATIVE (NEGATIVE); Ketones NEGATIVE (NEGATIVE); Leukocyte Esterase NEGATIVE (NEGATIVE); Mucus SLIGHT /HPF (NEGATIVE); Nitrite NEGATIVE (NEGATIVE); Protein,Urine Dip NEGATIVE (Negative); Specific Gravity 1.004 (1.005-1.025); Urobilinogen NEGATIVE mg/dL (0-1)
[2018-05-20 03:42] LABS: Amphetamine,Urine NEGATIVE (NEGATIVE); Barbiturate,Urine NEGATIVE (NEGATIVE); Benzodiazepine,Urine NEGATIVE (NEGATIVE); Cocaine,Urine NEGATIVE (NEGATIVE); Methadone,Urine NEGATIVE (NEGATIVE); Opiate,Urine NEGATIVE (NEGATIVE); PCP,Urine NEGATIVE (NEGATIVE); THC,Urine NEGATIVE (NEGATIVE)
[2018-05-20 03:58] VITALS: O2SAT 100
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
== END 2018-05-20 04:13 | disposition home or self-care (01) ==
LOC: ED 23:46
DX: R41.82 Altered mental status, unspecified (principal); F41.8 Other specified anxiety disorders; Z79.899 Other long term (current) drug therapy
CPT/HCPCS: 36415; 70450; 80053; 80307; 81001; 81025; 84436; 84443; 85025; 86308; 93005; 99284; G0481; A9270-GY; G0480

== ENCOUNTER 2018-06-18 17:13 | Emergency (ER) | payer BC, OTHER ==
--- NOTE | 2018-06-18 17:25 | ERPHSYRPT ---
- History of Present Illness Time Seen by Provider: 06/18/18 17:24 Source: patient Exam Limitations: no limitations Physician History: 32 y/o right handed white female presents with left thumb laceration. occurred ferry [place]. pts tetanus status is not utd. 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 Quality: painful Severity: mild Location: hands (left thumbtip laceration) Possible Causes: other (cutting sandwiches at work) Allergies/Adverse Reactions: No Known Drug Allergies Allergy (Verified 06/18/18 17:24) Home Medications: No Reportable Medications [No Reported Medications] 06/18/18 [History] Hx Tetanus, Diphtheria Vaccination/Date Given: Yes Hx Influenza Vaccination/Date Given: Yes Hx Pneumococcal Vaccination/Date Given: No - Review of Systems Constitutional: No Symptoms Eyes: No Symptoms Ears, Nose, & Throat: No Symptoms Respiratory: No Symptoms Cardiac: No Symptoms Abdominal/Gastrointestinal: No Symptoms Genitourinary Symptoms: No Symptoms Musculoskeletal: No Symptoms Skin: No Symptoms Neurological: No Symptoms Psychological: No Symptoms Endocrine: No Symptoms Hematologic/Lymphatic: No Symptoms Immunological/Allergic: No Symptoms All Other Systems: Reviewed and Negative - Past Medical History Pertinent Past Medical History: Yes Neurological History: No Pertinent History ENT History: No Pertinent History Cardiac History: No Pertinent History Respiratory History: No Pertinent History Endocrine Medical History: No Pertinent History Musculoskeletal History: No Pertinent History GI Medical History: No Pertinent History History: No Pertinent History Psycho-Social History: Anxiety, Depression Female Reproductive Disorders: No Pertinent History - Past Surgical History Past Surgical History: Yes Neuro Surgical History: No Pertinent History Cardiac: No Pertinent History Respiratory: No Pertinent History Gastrointestinal: No Pertinent History Genitourinary: No Pertinent History Musculoskeletal: No Pertinent History Female Surgical History: Section, Tubal Ligation, Other Other Surgical History: LEEP procedure - Social History Smoking Status: Never smoker How long have you smoked: 12 yrs Exposure to second hand smoke: No Drug Use: none Patient Lives Alone: No - Nursing Vital Signs Nursing Vital Signs: Initial Vital Signs Temperature 98 F 06/18/18 17:17 Pulse Rate 89 06/18/18 17:17 Respiratory Rate 16 06/18/18 17:17 Blood Pressure 141/94 06/18/18 17:17 O2 Sat by Pulse Oximetry 96 06/18/18 17:17 Pain Scale Pain Intensity 5 - Physical Exam General Appearance: no apparent distress, alert Eye Exam: PERRL/EOMI, eyes nml inspection Ears, Nose, Throat Exam: normal ENT inspection, moist mucous membranes Neck Exam: normal inspection, non-tender, supple, full range of motion Respiratory Exam: normal breath sounds, No chest tenderness Cardiovascular Exam: regular rate/rhythm, normal heart sounds, normal peripheral pulses Gastrointestinal/Abdomen Exam: soft, No tenderness Pelvic Exam: not done Rectal Exam: not done Back Exam: normal inspection, normal range of motion, No CVA tenderness, No vertebral tenderness Extremity Exam: normal inspection, normal range of motion, pelvis stable Neurologic Exam: alert, 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, cooperative, 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 no active bleeding. nv intact. tendon function intact.) Lymphatic Exam: No adenopathy SpO2 Interpretation: normal O2 Delivery: Room Air Procedures - Laceration/Wound Repair Left Finger Wound Location: Left, hand (tip of left thumb0.5) Wound Length (cm): 0.5 Wound's Depth, Shape: superficial Wound Explored: clean Irrigated: Yes Hibiclens Prep: Yes Wound Repaired With: Steri-strips, Dermabond - Departure Time of Disposition: 17:42 Departure Disposition: Home Clinical Impression: Thumb laceration Condition: Stable Critical Care Time: No Referrals: CON ZACARIAS [Primary Care Provider] - Additional Instructions: keep dry for 24 hours. leave steristrips in place until they fall off. use tylenol and ibuprofen for pain.
[2018-06-18] MEDS ORDERED: Adacel Vial IM ONE ×2 (17:43→17:51)
[2018-06-18 19:16] VITALS: BP 159/87; PULSE 79; O2SAT 99
== END 2018-06-18 19:15 | disposition home or self-care (01) ==
LOC: ED 17:13
DX: S61.012A Laceration without foreign body of left thumb without damage to nail, initial encounter (principal); W26.0XXA Contact with knife, initial encounter; Y93.89 Activity, other specified; Y92.89 Other specified places as the place of occurrence of the external cause; Y99.8 Other external cause status; F41.9 Anxiety disorder, unspecified
CPT/HCPCS: 12001; 90471; 90715; 99283

== ENCOUNTER 2018-09-09 20:48 | Emergency (ER) | payer BC ==
[2018-09-09] MEDS ORDERED: TORAdol 30 mg Injection IM ONE (21:34)
[2018-09-09] MEDS ORDERED: TORAdol 30 mg Injection ONE (21:38)
[2018-09-09 21:49] LABS: BASOPHIL % 0.3 % (0.0-0.4); Basophil (Absolute #) 0.02 (0-0.4); Eosinophil % 2.5 % (0.00-5.0); Eosinophil (Absolute #) 0.15 (0-0.5); Granulocyte Absolute (ANC) 2.86 (1.4-6.9); Hematocrit 35.2 % (35-47); Hemoglobin 11.6 gm/dl (12.0-16.0); Lymphocyte (Absolute #) 2.48 (1.0-4.6); Lymphocytes % 40.8 % (24.0-44.0); Mean Cell Volume 89.3 fl (78-100); Mean Corpuscular Hemoglobin 29.4 pg (26-32); Monocyte (Absolute #) 0.57 (0.0-1.3); Monocytes % 9.4 % (0.0-12.0); Platelet Count 243 K/mm3 (150-450); Red Blood Count 3.94 M/mm3 (4.1-5.4); Red Cell Distribution Width 12.9 % (11.5-14.0); White Blood Count 6.1 K/mm3 (4.0-10.5)
[2018-09-09 22:08] LABS: ALBUMIN 3.7 g/dL (3.5-5.0); ALKALINE PHOSPHATASE 38 U/L (38-126); BLOOD UREA NITROGEN 14 mg/dL (7-17); CHLORIDE 102 mmol/L (98-107); Calcium 9.4 mg/dL (8.4-10.2); Carbon Dioxide 30 mmol/L (22-30); Creatinine 1 0.71 mg/dL (0.52-1.04); Glucose 93 mg/dL (74-106); Potassium 4.2 mmol/L (3.5-5.1); SGOT/AST 18 U/L (14-36); SGPT/ALT 12 U/L (0-35); SODIUM 140 mmol/L (137-145); Total Protein 6.9 g/dL (6.3-8.2)
[2018-09-09 22:46] VITALS: O2SAT 100
[2018-09-09] MEDS ORDERED: ULTRAM 50 MG PO ONE (23:00)
[2018-09-09] MEDS ORDERED: ULTRAM 50 MG ONE (23:07)
[2018-09-10 00:37] VITALS: BP 127/71; PULSE 69
[2018-09-10] MEDS ORDERED: Sodium Chloride 0.9% 1000 ML 1,000 ML ONE (00:38)
--- NOTE | 2018-09-10 01:53 | ERPHSYRPT ---
- History of Present Illness Source: patient Exam Limitations: no limitations Patient Subjective Stated Complaint: brandon has headache hasnt went away all day has taken tylenol and ibuprofin Triage Nursing Assessment: pt is alert nand oreitnedx3, able to ambulate by self , experiencing headache, with light sensitivity, and some nausea for past 12 hrs, pupils perrla2, lung sounds clear, handgrips equal bialteral, no facial droop, skin warm dry and intact. Physician History: Pt is a 33 y/o female that presented to the ED with headache. Pt woke up in the AM with headache, and she took Tylenol and Exedrine, with no change. Pt has no h/o migraines. She is not tender to palpation. Pt has pain in her shoulder and neck. No F/C/S. No SOB or cough. No confusion. No chest discomfort. Timing/Duration: today Quality: aching, pressure, throbbing Head Pain Location: frontal, occipital Severity of Pain-Max: moderate Severity of Pain-Current: mild Recent Head Trauma: no recent headache/trauma Modifying Factors: Improves With: exposure to light, medication, movement, noise Associated Symptoms: sensitive to light Previous symptoms: no prior history Allergies/Adverse Reactions: No Known Drug Allergies Allergy (Verified 06/18/18 17:24) Home Medications: No Reportable Medications [No Reported Medications] 06/18/18 [History] Hx Tetanus, Diphtheria Vaccination/Date Given: Yes Hx Influenza Vaccination/Date Given: No Hx Pneumococcal Vaccination/Date Given: No Immunizations Up to Date: Yes - Review of Systems Constitutional: No Fever, No Chills Eyes: No Symptoms Ears, Nose, & Throat: No Symptoms Respiratory: No Cough, No Dyspnea Cardiac: No Chest Pain, No Edema, No Syncope Abdominal/Gastrointestinal: No Abdominal Pain, No Nausea, No Vomiting, No Diarrhea Genitourinary Symptoms: No Dysuria Musculoskeletal: No Back Pain, No Neck Pain Neurological: Headache Psychological: No Symptoms - Past Medical History Pertinent Past Medical History: Yes Neurological History: No Pertinent History ENT History: No Pertinent History Cardiac History: No Pertinent History Respiratory History: No Pertinent History Endocrine Medical History: No Pertinent History Musculoskeletal History: No Pertinent History GI Medical History: No Pertinent History History: No Pertinent History Psycho-Social History: Anxiety, Depression Female Reproductive Disorders: No Pertinent History - Past Surgical History Past Surgical History: Yes Neuro Surgical History: No Pertinent History Cardiac: No Pertinent History Respiratory: No Pertinent History Gastrointestinal: No Pertinent History Genitourinary: No Pertinent History Musculoskeletal: No Pertinent History Female Surgical History: Section, Tubal Ligation, Other Other Surgical History: LEEP procedure - Social History Smoking Status: Former smoker How long have you smoked: 12 yrs Exposure to second hand smoke: No Drug Use: none Patient Lives Alone: No - Female History Hx Now: No (tubal) - Nursing Vital Signs Nursing Vital Signs: Initial Vital Signs Temperature 99.5 F 09/09/18 20:49 Pulse Rate 85 09/09/18 20:49 Respiratory Rate 18 09/09/18 20:49 Blood Pressure 155/90 09/09/18 20:49 O2 Sat by Pulse Oximetry 99 09/09/18 20:49 Pain Scale Pain Intensity 7 - Physical Exam General Appearance: no apparent distress Eye Exam: PERRL/EOMI Ears, Nose, Throat Exam: normal ENT inspection, moist mucous membranes Neck Exam: normal inspection, supple, full range of motion, No meningismus Respiratory Exam: normal breath sounds, lungs clear Cardiovascular Exam: regular rate/rhythm, normal heart sounds Gastrointestinal/Abdominal Exam: soft, No tenderness, No distention Back Exam: normal inspection, normal range of motion Mental Status 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: alert, 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, 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: normal speech, PERRL, No facial droop Coordination/Gait Exam: normal cerebellar function Motor/Sensory Exam: no motor deficit, no sensory deficit Skin Exam: normal color, warm, dry, No rash SpO2: 100 - CT Exams Head CT Interpretation: Negative (CT of head with and without contrast was negative.) Ordered Tests: Active Orders 24 hr Category Date Time Status IV Insertion STAT Care 09/09/18 23:49 Active HEAD W/WO CONTRAST [CT] Stat Exams 09/09/18 23:49 Taken CBC W DIFF Stat Lab 09/09/18 21:50 Completed CMP Stat Lab 09/09/18 21:50 Completed Medication Summary Discontinued Medications Generic Name Dose Route Start Last Admin Trade Name Freq PRN Reason Stop Dose Admin Sodium Chloride Confirm 09/10/18 00:38 Sodium Chloride 0.9% 1000 Ml Administered 09/10/18 00:39 Dose 1,000 mls @ .ROUTE .K-MED ONE Ketorolac Tromethamine 60 mg 09/09/18 21:34 09/09/18 21:40 Toradol 30 Mg Injection IM 09/09/18 21:35 60 mg STAT ONE Administration Ketorolac Tromethamine Confirm 09/09/18 21:38 Toradol 30 Mg Injection Administered 09/09/18 21:39 Dose 60 mg .ROUTE .STK-MED ONE Tramadol HCl 100 mg 09/09/18 23:00 09/09/18 23:09 Ultram 50 Mg PO 09/09/18 23:01 100 mg STAT ONE Administration Tramadol HCl Confirm 09/09/18 23:07 Ultram 50 Mg Administered 09/09/18 23:08 Dose 100 mg .ROUTE .STK-MED ONE Lab/Rad Data: Laboratory Result Diagrams 09/09/18 21:50 09/09/18 21:50 Laboratory Results 09/09/18 09/09/18 Range/Units 21:50 21:50 WBC 6.1 (4.0-10.5) K/mm3 RBC 3.94 L (4.1-5.4) M/mm3 Hgb 11.6 L (12.0-16.0) gm/dl Hct 35.2 (35-47) % MCV 89.3 (78-100) fl MCH 29.4 (26-32) pg MCHC 33.0 (32-36) g/dl RDW 12.9 (11.5-14.0) % Plt Count 243 (150-450) K/mm3 MPV 10.0 H (6-9.5) fl Gran % 47.0 (36.0-66.0) % Eos # (Auto) 0.15 (0-0.5) Absolute Lymphs (auto) 2.48 (1.0-4.6) Absolute Monos (auto) 0.57 (0.0-1.3) Lymphocytes % 40.8 (24.0-44.0) % Monocytes % 9.4 (0.0-12.0) % Eosinophils % 2.5 (0.00-5.0) % Basophils % 0.3 (0.0-0.4) % Absolute Granulocytes 2.86 (1.4-6.9) Basophils # 0.02 (0-0.4) Sodium 140 (137-145) mmol/L Potassium 4.2 (3.5-5.1) mmol/L Chloride 102 (98-107) mmol/L Carbon Dioxide 30 (22-30) mmol/L Anion Gap 13.0 (5-15) MEQ/L BUN 14 (7-17) mg/dL Creatinine 0.71 (0.52-1.04) mg/dL Estimated GFR > 60.0 ML/MIN Glucose 93 (74-106) mg/dL Calcium 9.4 (8.4-10.2) mg/dL Total Bilirubin 0.30 (0.2-1.3) mg/dL AST 18 (14-36) U/L ALT 12 (0-35) U/L Alkaline Phosphatase 38 (38-126) U/L Serum Total Protein 6.9 (6.3-8.2) g/dL Albumin 3.7 (3.5-5.0) g/dL - Progress Progress: improved Air Movement: good Progress Note: 09/10/18 01:51 Pt was seen and examined. She had lab work done, that was negative. Pt had Toradol 60mg IM and Tramadol 100mg PO given and as pt was still in marked pain, her head was scanned, that was negative. Pt can use Ibuprofen and Tylenolk OTC for pain, and f/u with her PCP for her headache. Discussed with : Moises Will see patient in: office Counseled pt/family regarding: need for follow-up - Departure Departure Disposition: Home Clinical Impression: Headache Condition: Stable Critical Care Time: No Referrals: CON ZACARIAS [Primary Care Provider] - Additional Instructions: Take Tylenol and Ibuprofen for pain. F/U with PCP. Cold compress can help as well.
--- NOTE | 2018-09-10 08:47 | XRAY ---
Indication: Headache, dizziness, and blurry vision. No known injury. Multiple contiguous axial images obtained through the head prior to and following 80 cc Isovue 370 contrast. Comparison: May 20, 2018. Ventriculosulcal pattern is symmetric. No acute intracranial hemorrhage, abnormal extra-axial fluid collection, or mass effect. Following contrast, there is no abnormal enhancing intra or extra-axial mass. Fourth ventricle is midline without hydrocephalus. Cardoza-white matter differentiation preserved. Bony calvarium intact. Impression: Normal CT head with and without contrast exam. Comment: Preliminary interpretation was made by [facility]. No discrepancy. CT DI 70.87
== END 2018-09-10 02:15 | disposition home or self-care (01) ==
LOC: ED 20:48
DX: R51 Headache (principal); M54.2 Cervicalgia; M25.519 Pain in unspecified shoulder
CPT/HCPCS: 36000; 36415; 70470; 80053; 85025; 96372; 99284; J1885; A9270-GY

== ENCOUNTER 2018-09-12 17:15 | Emergency (ER) | payer BC ==
--- NOTE | 2018-09-12 17:18 | ERPHSYRPT ---
- History of Present Illness Time Seen by Provider: 09/12/18 17:17 Source: patient Exam Limitations: no limitations Physician History: 33 y/o white female seen in this ED on 09/10/18, doctors office 09/11/18 and now again today in this ED. sx same including headache, abd pain and fatigue. pts work up thus far on the above visits have been negative. pt denies soa, denies cp, denies cough, denies new meds. pt is under a lot of stress. pt does not have any h/o bleeding out of any orifice. Timing/Duration: other (several days) Associated Symptoms: abdominal pain, headaches, malaise Allergies/Adverse Reactions: No Known Drug Allergies Allergy (Verified 06/18/18 17:24) Home Medications: Buspirone HCl [Buspar] 10 mg PO BID 09/12/18 [History] Hx Tetanus, Diphtheria Vaccination/Date Given: Yes Hx Influenza Vaccination/Date Given: No Hx Pneumococcal Vaccination/Date Given: No - Review of Systems Constitutional: Malaise, Weakness Eyes: No Symptoms Ears, Nose, & Throat: No Symptoms Respiratory: No Symptoms Cardiac: No Symptoms Abdominal/Gastrointestinal: Abdominal Pain (mild diffuse) Genitourinary Symptoms: No Symptoms Musculoskeletal: No Symptoms Skin: No Symptoms Neurological: Headache Psychological: No Symptoms Endocrine: No Symptoms Hematologic/Lymphatic: No Symptoms Immunological/Allergic: No Symptoms All Other Systems: Reviewed and Negative - Past Medical History Pertinent Past Medical History: Yes Neurological History: No Pertinent History ENT History: No Pertinent History Cardiac History: No Pertinent History Respiratory History: No Pertinent History Endocrine Medical History: No Pertinent History Musculoskeletal History: No Pertinent History GI Medical History: No Pertinent History History: No Pertinent History Psycho-Social History: Anxiety, Depression Female Reproductive Disorders: No Pertinent History - Past Surgical History Past Surgical History: Yes Neuro Surgical History: No Pertinent History Cardiac: No Pertinent History Respiratory: No Pertinent History Gastrointestinal: No Pertinent History Genitourinary: No Pertinent History Musculoskeletal: No Pertinent History Female Surgical History: Section, Tubal Ligation, Other Other Surgical History: LEEP procedure - Social History Smoking Status: Former smoker How long have you smoked: 12 yrs Exposure to second hand smoke: No Drug Use: none Patient Lives Alone: No - Nursing Vital Signs Nursing Vital Signs: Initial Vital Signs Temperature 98.8 F 09/12/18 17:23 Pulse Rate 88 09/12/18 17:23 Respiratory Rate 18 09/12/18 17:23 Blood Pressure 143/86 09/12/18 17:23 O2 Sat by Pulse Oximetry 98 09/12/18 17:23 Pain Scale Pain Intensity 7 - Physical Exam General Appearance: no apparent distress, alert, anxiety Eye Exam: PERRL/EOMI Ears, Nose, Throat Exam: normal ENT inspection, moist mucous membranes Neck Exam: normal inspection, non-tender, supple, full range of motion Respiratory Exam: normal breath sounds, lungs clear, airway intact, No chest tenderness, No respiratory distress Cardiovascular Exam: regular rate/rhythm, normal heart sounds, normal peripheral pulses Gastrointestinal/Abdomen Exam: soft, normal bowel sounds, No tenderness, No guarding, No rebound Pelvic Exam: not done Rectal Exam: not done Back Exam: normal inspection, normal range of motion, No CVA tenderness, No vertebral tenderness Extremity Exam: normal inspection, normal range of motion, pelvis stable Neurologic Exam: alert, 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, cooperative, 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 as tested Skin Exam: normal color, warm, dry Lymphatic Exam: No adenopathy SpO2 Interpretation: normal O2 Delivery: Room Air - Course Nursing assessment & vital signs reviewed: Yes Ordered Tests: Active Orders 24 hr Category Date Time Status ABDOMEN AND PELVIS W/0 CONTRAS [CT] Stat Exams 09/12/18 17:42 Taken BMP Stat Lab 09/12/18 17:57 Completed CBC W DIFF Stat Lab 09/12/18 17:57 Completed HCG,QUALITATIVE URINE Stat Lab 09/12/18 19:50 Received UA W/RFX UR CULTURE Stat Lab 09/12/18 19:50 Completed Urine Triage Profile Stat Lab 09/12/18 19:50 Received Lab/Rad Data: Laboratory Result Diagrams 09/12/18 17:57 09/12/18 17:57 Laboratory Results 09/12/18 09/12/18 09/12/18 Range/Units 19:50 17:57 17:57 WBC 6.4 (4.0-10.5) K/mm3 RBC 3.92 L (4.1-5.4) M/mm3 Hgb 11.5 L (12.0-16.0) gm/dl Hct 34.8 L (35-47) % MCV 88.8 (78-100) fl MCH 29.3 (26-32) pg MCHC 33.0 (32-36) g/dl RDW 12.7 (11.5-14.0) % Plt Count 242 (150-450) K/mm3 MPV 9.7 H (6-9.5) fl Gran % 58.4 (36.0-66.0) % Eos # (Auto) 0.11 (0-0.5) Absolute Lymphs (auto) 2.04 (1.0-4.6) Absolute Monos (auto) 0.50 (0.0-1.3) Lymphocytes % 31.9 (24.0-44.0) % Monocytes % 7.8 (0.0-12.0) % Eosinophils % 1.7 (0.00-5.0) % Basophils % 0.2 (0.0-0.4) % Absolute Granulocytes 3.74 (1.4-6.9) Basophils # 0.01 (0-0.4) Sodium 140 (137-145) mmol/L Potassium 3.9 (3.5-5.1) mmol/L Chloride 103 (98-107) mmol/L Carbon Dioxide 28 (22-30) mmol/L Anion Gap 13.1 (5-15) MEQ/L BUN 13 (7-17) mg/dL Creatinine 0.78 (0.52-1.04) mg/dL Estimated GFR > 60.0 ML/MIN Glucose 97 (74-106) mg/dL Calcium 9.2 (8.4-10.2) mg/dL Urine Color YELLOW (YELLOW) Urine Appearance CLEAR (CLEAR) Urine pH 7.0 (5-6) Ur Specific [place] 1.006 (1.005-1.025) Urine Protein NEGATIVE (Negative) Urine Ketones NEGATIVE (NEGATIVE) Urine Blood NEGATIVE (0-5) Dusty/ul Urine Nitrite NEGATIVE (NEGATIVE) Urine Bilirubin NEGATIVE (NEGATIVE) Urine Urobilinogen NEGATIVE (0-1) mg/dL Ur Leukocyte Esterase NEGATIVE (NEGATIVE) Urine WBC (Auto) NONE (0-5) /HPF Urine RBC (Auto) NONE (0-2) /HPF U Epithel Cells (Auto) NONE (FEW) /HPF Urine Bacteria (Auto) NONE (NEGATIVE) /HPF Urine Mucus (Auto) SLIGHT (NEGATIVE) /HPF Urine Culture Reflexed NO (NO) Urine Glucose NEGATIVE (NEGATIVE) mg/dL - Progress Progress: unchanged Progress Note: 09/12/18 18:51 ct abd/pelvis-uterine mass 4.8cm, probable cyst. no acute process. Counseled pt/family regarding: lab results, diagnosis, need for follow-up, rad results - Departure Departure Disposition: Home Clinical Impression: Abdominal pain, Headache, Malaise and fatigue Condition: Stable Critical Care Time: No Referrals: CON ZACARIAS [Primary Care Provider] - Additional Instructions: drink plenty of fluids. follow up with primary doctor for further management
[2018-09-12 17:28] VITALS: PULSE 88; O2SAT 98
[2018-09-12 17:57] LABS: BASOPHIL % 0.2 % (0.0-0.4); Basophil (Absolute #) 0.01 (0-0.4); Eosinophil % 1.7 % (0.00-5.0); Eosinophil (Absolute #) 0.11 (0-0.5); Granulocyte Absolute (ANC) 3.74 (1.4-6.9); Granulocytes % 58.4 % (36.0-66.0); Hematocrit 34.8 % (35-47); Hemoglobin 11.5 gm/dl (12.0-16.0); Lymphocyte (Absolute #) 2.04 (1.0-4.6); Lymphocytes % 31.9 % (24.0-44.0); Mean Cell Volume 88.8 fl (78-100); Mean Corpuscular Hemoglobin 29.3 pg (26-32); Mean Platelet Volume 9.7 fl (6-9.5); Monocytes % 7.8 % (0.0-12.0); Platelet Count 242 K/mm3 (150-450); Red Blood Count 3.92 M/mm3 (4.1-5.4); Red Cell Distribution Width 12.7 % (11.5-14.0); White Blood Count 6.4 K/mm3 (4.0-10.5)
[2018-09-12 18:08] LABS: ANION GAP 13.1 MEQ/L (5-15); BLOOD UREA NITROGEN 13 mg/dL (7-17); CHLORIDE 103 mmol/L (98-107); Calcium 9.2 mg/dL (8.4-10.2); Carbon Dioxide 28 mmol/L (22-30); Creatinine 1 0.78 mg/dL (0.52-1.04); Glucose 97 mg/dL (74-106); Potassium 3.9 mmol/L (3.5-5.1); SODIUM 140 mmol/L (137-145)
[2018-09-12 19:49] VITALS: BP 144/111
[2018-09-12 19:51] LABS: Appearance CLEAR (CLEAR); Bilirubin NEGATIVE (NEGATIVE); Blood NEGATIVE Ery/ul (0-5); Glucose NEGATIVE (NEGATIVE); Ketones NEGATIVE (NEGATIVE); Leukocyte Esterase NEGATIVE (NEGATIVE); Mucus SLIGHT /HPF (NEGATIVE); Nitrite NEGATIVE (NEGATIVE); Protein,Urine Dip NEGATIVE (Negative); Specific Gravity 1.006 (1.005-1.025); Urobilinogen NEGATIVE mg/dL (0-1)
[2018-09-12] MEDS ORDERED: NORCO 5/325 MG PO ONE (19:54)
[2018-09-12] MEDS ORDERED: NORCO 5/325 MG ONE (20:00)
[2018-09-12 20:08] LABS: Amphetamine,Urine NEGATIVE (NEGATIVE); Barbiturate,Urine NEGATIVE (NEGATIVE); Benzodiazepine,Urine NEGATIVE (NEGATIVE); Cocaine,Urine NEGATIVE (NEGATIVE); Methadone,Urine NEGATIVE (NEGATIVE); Opiate,Urine NEGATIVE (NEGATIVE); PCP,Urine NEGATIVE (NEGATIVE); THC,Urine NEGATIVE (NEGATIVE)
--- NOTE | 2018-09-13 08:42 | XRAY ---
Indication: Right upper abdomen pain. Nausea and vomiting. Multiple contiguous axial images obtained through the abdomen and pelvis without contrast as ordered. Comparison: None Lung bases demonstrates right base calcified granuloma. No infiltrate or effusion. Heart is not enlarged. Stomach is distended with food/fluid. Noncontrasted stomach and bowel loops appear nonobstructed. Normal appendix. There is moderate diffuse scattered colonic fecal debris throughout. Uterine cervix demonstrates a 4.8 cm round hypodense mass, possible cyst. No free fluid/air. Remaining liver, gallbladder, pancreas, spleen, adrenal glands, kidneys, ureters, bladder, uterus, and aorta appear unremarkable for noncontrast exam. Osseous structures intact. No ventral or inguinal hernias. Impression: 1. Diffuse fecal stasis. 2. Cervical uterine hypodense mass, possible nabothian cyst. Pelvic sonogram may yield further information. 2. Remaining CT abdomen/pelvis without contrast exam is negative. CT DI 22.79
== END 2018-09-12 20:23 | disposition home or self-care (01) ==
LOC: ED 17:15
DX: R10.9 Unspecified abdominal pain (principal); R51 Headache; R53.83 Other fatigue; R53.81 Other malaise
CPT/HCPCS: 36415; 74176; 80048; 80307; 81001; 84703; 85025; 99284; A9270-GY

== ENCOUNTER 2019-01-18 16:27 | Emergency (ER) | payer BC ==
[2019-01-18 16:42] VITALS: BP 145/92; PULSE 70; O2SAT 98
--- NOTE | 2019-01-18 17:46 | ERPHSYRPT ---
- History of Present Illness Time Seen by Provider: 01/18/19 17:15 Source: patient, family Exam Limitations: no limitations Patient Subjective Stated Complaint: Headache Triage Nursing Assessment: Patient ambulated back to ED and transferred self to bed. Patient A+O X3. Patient's skin pink, warm and dry. Patient complains of headache for 5 days. Patient's neck tense. Patient states pain is 7/10 constan dull throbbing. Patient states she is light sensitive. Physician History: 33 y/o white female presents with migraine headache for 4 to 5 days. neck is tense. no fever. pt is light sensitive. no head trauma. not the worst headache she has ever had. Timing/Duration: day(s) (4 to 5 ) Quality: aching Head Pain Location: global Severity of Pain-Max: moderate Severity of Pain-Current: moderate Recent Head Trauma: no recent headache/trauma, occasional headaches Modifying Factors: Improves With: exposure to light Associated Symptoms: sensitive to light Previous symptoms: same symptoms as today, no recent treatment Allergies/Adverse Reactions: No Known Drug Allergies Allergy (Verified 01/18/19 16:31) Home Medications: Buspirone HCl [Buspar] 10 mg PO BID 09/12/18 [History] Hx Tetanus, Diphtheria Vaccination/Date Given: Yes Hx Influenza Vaccination/Date Given: No Hx Pneumococcal Vaccination/Date Given: No Immunizations Up to Date: Yes - Review of Systems Constitutional: No Symptoms Eyes: No Symptoms Ears, Nose, & Throat: No Symptoms Respiratory: No Symptoms Cardiac: No Symptoms Abdominal/Gastrointestinal: No Symptoms Genitourinary Symptoms: No Symptoms Musculoskeletal: No Symptoms Skin: No Symptoms Neurological: Headache Psychological: No Symptoms Endocrine: No Symptoms Hematologic/Lymphatic: No Symptoms Immunological/Allergic: No Symptoms All Other Systems: Reviewed and Negative - Past Medical History Pertinent Past Medical History: Yes Neurological History: No Pertinent History ENT History: No Pertinent History Cardiac History: No Pertinent History Respiratory History: No Pertinent History Endocrine Medical History: No Pertinent History Musculoskeletal History: No Pertinent History GI Medical History: No Pertinent History History: No Pertinent History Psycho-Social History: Anxiety, Depression Female Reproductive Disorders: No Pertinent History - Past Surgical History Past Surgical History: Yes Neuro Surgical History: No Pertinent History Cardiac: No Pertinent History Respiratory: No Pertinent History Gastrointestinal: No Pertinent History Genitourinary: No Pertinent History Musculoskeletal: No Pertinent History Female Surgical History: Dilation & Curettage, Section, Tubal Ligation , Other Other Surgical History: LEEP procedure - Social History Smoking Status: Never smoker How long have you smoked: 12 yrs Exposure to second hand smoke: No Drug Use: none Patient Lives Alone: No - Female History Hx Last Menstrual Period: just ended Hx Now: No - Nursing Vital Signs Nursing Vital Signs: Initial Vital Signs Temperature 99.2 F 01/18/19 16:33 Pulse Rate 70 01/18/19 16:33 Respiratory Rate 18 01/18/19 16:33 Blood Pressure 145/92 01/18/19 16:33 O2 Sat by Pulse Oximetry 98 01/18/19 16:33 Pain Scale Pain Intensity 7 - Physical Exam General Appearance: mild distress, alert, anxiety Eye Exam: PERRL/EOMI, eyes nml inspection Ears, Nose, Throat Exam: normal ENT inspection, moist mucous membranes Neck Exam: normal inspection, non-tender, supple, full range of motion Respiratory Exam: No chest tenderness Gastrointestinal/Abdominal Exam: No tenderness Back Exam: normal inspection, normal range of motion, No CVA tenderness, No vertebral tenderness Extremity Exam: normal inspection, normal range of motion, pelvis stable Mental Status Exam: alert, 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, 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 Exam: normal hearing, normal speech, PERRL, tongue midline Motor/Sensory Exam: no motor deficit, no sensory deficit Lymphatic Exam: No adenopathy SpO2 Interpretation: normal SpO2: 98 O2 Delivery: Room Air - Course Nursing assessment & vital signs reviewed: Yes - Progress Progress: unchanged Air Movement: good Blood Culture(s) Obtained: No Antibiotics given: No Counseled pt/family regarding: diagnosis, need for follow-up - Departure Departure Disposition: Home Clinical Impression: Migraine headache Condition: Stable Critical Care Time: No Referrals: CON ZACARIAS [Primary Care Provider] - Additional Instructions: follow up with primary doctor for further management
[2019-01-18] MEDS ORDERED: Phenergan 25 MG INJ IM ONE (17:51)
[2019-01-18] MEDS ORDERED: Hydromorphone 1 mg/ml Ampule IM ONE (17:51)
[2019-01-18] MEDS ORDERED: Hydromorphone 1 mg/ml Ampule ONE (17:54)
[2019-01-18] MEDS ORDERED: Phenergan 25 MG INJ ONE (17:54)
== END 2019-01-18 18:13 | disposition home or self-care (01) ==
LOC: ED 16:27
DX: G43.909 Migraine, unspecified, not intractable, without status migrainosus (principal)
CPT/HCPCS: 96372; 99283; J1170; J2550

== ENCOUNTER 2020-07-12 15:40 | Emergency (ER) | payer BC, OTHER ==
[2020-07-12] MEDS ORDERED: CITROMA 296 ML PO ONE (16:14)
[2020-07-12] MEDS ORDERED: CITROMA 296 ML ONE (16:15)
--- NOTE | 2020-07-12 16:21 | ERPHSYRPT ---
- History of Present Illness Time Seen by Provider: 07/12/20 16:18 Historian: patient Exam Limitations: no limitations Patient Subjective Stated Complaint: abd pain, constipation Triage Nursing Assessment: pt to ED c/o LLQ pain x 2 days and constipation x 2-3 weeks. reports that she is still able to pass gas. rates 7/10 sharp pain that radiates around to L back. also reports some possible hematuria and discomfort with urination. abd non tender. BS active in all quads. Physician History: This 35-year-old female without any significant past medical history came to the emergency room with complaining of 4-week history of constipation and abdominal pain off and on. She is complaining of abdominal pain mainly in the left lower quadrant area. She is passing gas but does not have a bowel movement for last 4 weeks. She has started all the remedies at home without any help. She denies any fever chills but complaining of occasional nausea. She is also complaining of dark-colored urine. Timing/Duration: week(s) Quality: cramping Abdominal Pain Onset Location: LLQ Pain Radiation: no radiation Severity of Pain-Max: mild Severity of Pain-Current: mild Modifying Factors: Improves With: nothing Associated Symptoms: nausea Previous symptoms: no prior history Allergies/Adverse Reactions: No Known Drug Allergies Allergy (Verified 07/12/20 15:52) Home Medications: PARoxetine HCL [Paroxetine HCl] 40 mg PO DAILY 07/12/20 [History] clonazePAM [Clonazepam] 1 mg PO DAILY PRN PRN 07/12/20 [History] Hx Tetanus, Diphtheria Vaccination/Date Given: Yes Hx Influenza Vaccination/Date Given: No Hx Pneumococcal Vaccination/Date Given: No Immunizations Up to Date: Yes Travel Risk - International Travel Have you traveled outside of the country in past 3 weeks: No - Coronavirus Screening Are you exhibiting any of the following symptoms?: Yes Symptoms: Fever Close contact with a COVID-19 positive Pt in past 14-21 Days: No - Vaccine Status Have you recieved a Covid-19 vaccination: No - Review of Systems Constitutional: No Fever, No Chills Eyes: No Symptoms Ears, Nose, & Throat: No Symptoms Respiratory: No Cough, No Dyspnea Cardiac: No Chest Pain, No Edema, No Syncope Abdominal/Gastrointestinal: Abdominal Pain, Nausea, Constipation, No Vomiting, No Diarrhea Genitourinary Symptoms: No Dysuria Musculoskeletal: No Back Pain, No Neck Pain Skin: No Rash Neurological: No Dizziness, No Focal Weakness, No Sensory Changes Psychological: No Symptoms Endocrine: No Symptoms All Other Systems: Reviewed and Negative - Past Medical History Pertinent Past Medical History: Yes Neurological History: No Pertinent History ENT History: No Pertinent History Cardiac History: No Pertinent History Respiratory History: No Pertinent History Endocrine Medical History: No Pertinent History Musculoskeletal History: No Pertinent History GI Medical History: No Pertinent History History: No Pertinent History Psycho-Social History: Anxiety, Depression Female Reproductive Disorders: No Pertinent History - Past Surgical History Past Surgical History: Yes Neuro Surgical History: No Pertinent History Cardiac: No Pertinent History Respiratory: No Pertinent History Gastrointestinal: No Pertinent History Genitourinary: No Pertinent History Musculoskeletal: No Pertinent History Female Surgical History: Dilation & Curettage, Section, Tubal Ligation, Other Other Surgical History: LEEP procedure - Social History Smoking Status: Current every day smoker How long have you smoked: 12 yrs Exposure to second hand smoke: No Drug Use: none Patient Lives Alone: No - Female History Hx Last Menstrual Period: last month Hx Now: No (tubal) - Nursing Vital Signs Nursing Vital Signs: Initial Vital Signs Temperature 99.3 F 07/12/20 15:44 Pulse Rate 83 07/12/20 15:44 Respiratory Rate 18 07/12/20 15:44 Blood Pressure 124/88 07/12/20 15:44 O2 Sat by Pulse Oximetry 97 07/12/20 15:44 Pain Scale Pain Intensity 3 - Physical Exam General Appearance: no apparent distress, alert Eye Exam: PERRL/EOMI, eyes nml inspection Ears, Nose, Throat Exam: normal ENT inspection, pharynx normal, moist mucous membranes Neck Exam: normal inspection, non-tender, supple, full range of motion Respiratory Exam: normal breath sounds, lungs clear, No respiratory distress Cardiovascular Exam: regular rate/rhythm, normal heart sounds Gastrointestinal/Abdomen Exam: soft, tenderness (left lower quadrant area), No mass Back Exam: normal inspection, normal range of motion, No CVA tenderness, No vertebral tenderness Extremity Exam: normal inspection, normal range of motion, pelvis stable Neurologic Exam: alert, 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, cooperative, normal mood/affect, nml cerebellar function, sensation nml, No motor deficits Skin Exam: normal color, warm, dry SpO2: 97 - Course Nursing assessment & vital signs reviewed: Yes - CT Exams Abdomen/Pelvis CT Interpretation: Tele-radiologist Report (fecal impaction, cervical, uterine mass) Ordered Tests: Active Orders 24 hr Category Date Time Status Enema STAT Care 07/12/20 17:05 Completed ABDOMEN AND PELVIS W/0 CONTRAS [CT] Stat Exams 07/12/20 17:39 Taken CBC W DIFF Stat Lab 07/12/20 16:30 Completed CMP Stat Lab 07/12/20 16:30 Completed CULTURE,URINE Stat Lab 07/12/20 16:44 Received UA W/RFX UR CULTURE Stat Lab 07/12/20 16:44 Completed Urine Triage Profile Stat Lab 07/12/20 16:44 Completed Medication Summary Discontinued Medications Generic Name Dose Route Start Last Admin Trade Name Freq PRN Reason Stop Dose Admin Ceftriaxone Sodium 1,000 mg 07/12/20 17:43 07/12/20 17:48 Rocephin 1000 Mg Inj IM 07/12/20 17:44 1,000 mg STAT ONE Administration Ceftriaxone Sodium Confirm 07/12/20 17:45 Rocephin 1000 Mg Inj Administered 07/12/20 17:46 Dose 1,000 mg .ROUTE .STK-MED ONE Ceftriaxone Sodium/Dextrose 1 g in 50 mls @ 100 mls/hr 07/12/20 17:36 17:44 Rocephin 1 Gm-D5w 50 Ml Bag IV 07/12/20 18:05 Not Given STAT STA Magnesium Citrate 296 ml 07/12/20 16:14 07/12/20 16:16 Citroma 296 Ml PO 07/12/20 16:15 296 ml STAT ONE Administration Magnesium Citrate Confirm 07/12/20 16:15 Citroma 296 Ml Administered 07/12/20 16:16 Dose 296 ml .ROUTE .STK-MED ONE Ondansetron HCl Confirm 07/12/20 17:36 Zofran 4 Mg/2 Ml Vial Administered 07/12/20 17:37 Dose 4 mg .ROUTE .STK-MED ONE Ondansetron HCl Confirm 07/12/20 17:38 Zofran Odt 4 Mg Administered 07/12/20 17:39 Dose 4 mg .ROUTE .STK-MED ONE Lab/Rad Data: Laboratory Result Diagrams 07/12/20 16:30 07/12/20 16:30 Laboratory Results 07/12/20 07/12/20 07/12/20 Range/Units 16:44 16:44 16:30 WBC (4.0-10.5) K/mm3 RBC (4.1-5.4) M/mm3 Hgb (12.0-16.0) gm/dl Hct (35-47) % MCV (78-100) fl MCH (26-32) pg MCHC (32-36) g/dl RDW (11.5-14.0) % Plt Count (150-450) K/mm3 MPV (7.5-11.0) fl Gran % (36.0-66.0) % Eos # (Auto) (0-0.5) Absolute Lymphs (auto) (1.0-4.6) Absolute Monos (auto) (0.0-1.3) Lymphocytes % (24.0-44.0) % Monocytes % (0.0-12.0) % Eosinophils % (0.00-5.0) % Basophils % (0.0-0.4) % Absolute Granulocytes (1.4-6.9) Basophils # (0-0.4) Sodium 138 (137-145) mmol/L Potassium 4.4 (3.5-5.1) mmol/L Chloride 100 (98-107) mmol/L Carbon Dioxide 30 (22-30) mmol/L Anion Gap 12.4 (5-15) MEQ/L BUN 10 (7-17) mg/dL Creatinine 0.89 (0.52-1.04) mg/dL Estimated GFR > 60.0 ML/MIN Glucose 127 H (74-106) mg/dL Calcium 9.4 (8.4-10.2) mg/dL Total Bilirubin 0.30 (0.2-1.3) mg/dL AST 19 (14-36) U/L ALT 11 (0-35) U/L Alkaline Phosphatase 65 (38-126) U/L Serum Total Protein 7.6 (6.3-8.2) g/dL Albumin 4.0 (3.5-5.0) g/dL Urine Color YELLOW (YELLOW) Urine Appearance SLIGHTLY CLOUDY (CLEAR) Urine pH 6.0 (5-6) Ur Specific [place] 1.011 (1.005-1.025) Urine Protein 30 (Negative) Urine Ketones NEGATIVE (NEGATIVE) Urine Blood MODERATE (0-5) Dusty/ul Urine Nitrite NEGATIVE (NEGATIVE) Urine Bilirubin NEGATIVE (NEGATIVE) Urine Urobilinogen NEGATIVE (0-1) mg/dL Ur Leukocyte Esterase SMALL (NEGATIVE) Urine WBC (Auto) 26-50 (0-5) /HPF Urine RBC (Auto) 6-10 (0-2) /HPF U Epithel Cells (Auto) NONE (FEW) /HPF Urine Bacteria (Auto) NONE (NEGATIVE) /HPF Urine Mucus (Auto) SLIGHT (NEGATIVE) /HPF Urine Culture Reflexed YES (NO) Urine Glucose NEGATIVE (NEGATIVE) mg/dL Urine Opiates Level NEGATIVE (NEGATIVE) Ur Methadone NEGATIVE (NEGATIVE) Urine Barbiturates NEGATIVE (NEGATIVE) Ur Phencyclidine (PCP) NEGATIVE (NEGATIVE) Urine Amphetamine NEGATIVE (NEGATIVE) U Benzodiazepine Level NEGATIVE (NEGATIVE) Urine Cocaine NEGATIVE (NEGATIVE) Urine Marijuana (THC) POSITIVE (NEGATIVE) 07/12/20 Range/Units 16:30 WBC 9.8 (4.0-10.5) K/mm3 RBC 4.63 (4.1-5.4) M/mm3 Hgb 13.7 (12.0-16.0) gm/dl Hct 42.6 (35-47) % MCV 92.0 (78-100) fl MCH 29.6 (26-32) pg MCHC 32.2 (32-36) g/dl RDW 13.4 (11.5-14.0) % Plt Count 267 (150-450) K/mm3 MPV 9.8 (7.5-11.0) fl Gran % 73.5 H (36.0-66.0) % Eos # (Auto) 0.08 (0-0.5) Absolute Lymphs (auto) 1.07 (1.0-4.6) Absolute Monos (auto) 1.44 H (0.0-1.3) Lymphocytes % 10.9 L (24.0-44.0) % Monocytes % 14.6 H (0.0-12.0) % Eosinophils % 0.8 (0.00-5.0) % Basophils % 0.2 (0.0-0.4) % Absolute Granulocytes 7.22 H (1.4-6.9) Basophils # 0.02 (0-0.4) Sodium (137-145) mmol/L Potassium (3.5-5.1) mmol/L Chloride (98-107) mmol/L Carbon Dioxide (22-30) mmol/L Anion Gap (5-15) MEQ/L BUN (7-17) mg/dL Creatinine (0.52-1.04) mg/dL Estimated GFR ML/MIN Glucose (74-106) mg/dL Calcium (8.4-10.2) mg/dL Total Bilirubin (0.2-1.3) mg/dL AST (14-36) U/L ALT (0-35) U/L Alkaline Phosphatase (38-126) U/L Serum Total Protein (6.3-8.2) g/dL Albumin (3.5-5.0) g/dL Urine Color (YELLOW) Urine Appearance (CLEAR) Urine pH (5-6) Ur Specific [place] (1.005-1.025) Urine Protein (Negative) Urine Ketones (NEGATIVE) Urine Blood (0-5) Dusty/ul Urine Nitrite (NEGATIVE) Urine Bilirubin (NEGATIVE) Urine Urobilinogen (0-1) mg/dL Ur Leukocyte Esterase (NEGATIVE) Urine WBC (Auto) (0-5) /HPF Urine RBC (Auto) (0-2) /HPF U Epithel Cells (Auto) (FEW) /HPF Urine Bacteria (Auto) (NEGATIVE) /HPF Urine Mucus (Auto) (NEGATIVE) /HPF Urine Culture Reflexed (NO) Urine Glucose (NEGATIVE) mg/dL Urine Opiates Level (NEGATIVE) Ur Methadone (NEGATIVE) Urine Barbiturates (NEGATIVE) Ur Phencyclidine (PCP) (NEGATIVE) Urine Amphetamine (NEGATIVE) U Benzodiazepine Level (NEGATIVE) Urine Cocaine (NEGATIVE) Urine Marijuana (THC) (NEGATIVE) - Progress Progress: improved Counseled pt/family regarding: drug and/or alcohol abuse, lab results, diagnosis, need for follow-up, rad results, smoking cessation - Departure Departure Disposition: Home Clinical Impression: UTI (urinary tract infection) due to Enterococcus Constipation Qualifiers: Constipation type: slow transit constipation Qualified Code(s): K59.01 - Slow transit constipation Condition: Stable Critical Care Time: No Referrals: ASHLIE MEDRANO JR [Primary Care Provider] - Follow Up with PCP/3 days Instructions: Constipation, Adult (DC), Urinary Tract Infection, Adult (DC), Home Treatments for Constipation When You Have Cancer Additional Instructions: Discharge/Care Plan PHILIPPE PEPE was seen on 07/12/20 in the Emergency Room. The patient was counseled regarding Diagnosis,Lab results, Imaging studies, need for follow up and when to return to the Emergency Room. Patient is informed about abnormal CT results and advised to follow up with Her primary care physician EDINSON. Prescriptions given: Discharge Note I have spoken with the patient and/or caregivers. I have explained the patient's condition, diagnosis and treatment plan based on the information available to me at this time. I have answered the patient's and/or caregiver's questions and addressed any concerns. The patient and/or caregivers have as good understanding of the patient's diagnosis, condition and treatment plan as can be expected at this point. The vital signs have been stable. The patient's condition is stable and appropriate for discharge from the emergency department. The patient will pursue further outpatient evaluation with the primary care physician or other designated or consulting physician as outlined in the d ischarge instructions. The patient and/or caregivers are agreeable to this plan of care and follow-up instructions have been explained in detail. The patient and/or caregivers have received these instruction. The patient/and or caregivers are aware that any significant change in condition or worsening of symptoms should prompt an immediate return to this or the closest emergency department or call 911. PHILIPPE PEPE was seen on 07/12/20 n the Emergency Room. At that time you were treated for an emergent condition, during your visit Laboratory, Radiology and/or other procedures may have been ordered. It is very important that you follow-up with your Primary Care Physician within the next 24-48 hours to review your Emergency Room visit and the final results of testing that was ordered. Some test results such as Urine Cultures, Blood Cultures, and other cultures if ordered will not be finalized for 24-48 hours. If you do not have a Primary Care Provider please call the medical records department at [phone] ext [phone] to obtain a copy of your results or you may sign into our patient portal to obtain these results by visiting us @ [email or web address] and completing the following steps: 1. Click on the Patient Portal link 2. Click the Patient Self Enrollment Link to complete the enrollment form and entering your 3. Once the enrollment form is completed you will receive an email with a temporary ID and password at the email address you provided. 4. Next choose a user name and password. Your user name must be at least 4 characters long and your password must be at least 4 characters long. 5. Choose a security question from the list and provide your answer to the question. If you already have signed into the Health Portal you may access your Health Care Information 24/10 by the following steps: 1. Login to our website @ [email or web address] 2. Enter your original user name and password. FAQS The [facility] Health Portal is an online tool that contains your Lab Results, Radi ology Reports, Visit History, Discharge Instructions and Health Summary Lab and Radiology Results will not be available for 72 hours on the portal. The Portal is a secure site, passwords are encryted and URLs are re-written so they cannot be copied and pasted. You and authorized family members are the only ones who can access your Portal. Also there is a timeout feature that protects your information if you leave the Portal page open. If you have technical difficulty please use the Contact Us link on the page this will allow you to submit any questions you have regarding the Portal or you may contact the Medical Record Department at [phone]. Prescriptions: Ciprofloxacin [Cipro 500 MG] 500 mg PO BIDAC #20 tablet
[2020-07-12 16:37] LABS: Absolute Neutrophil Ct (ANC) 7.22 (1.4-6.9); BASOPHIL % 0.2 % (0.0-0.4); Basophil (Absolute #) 0.02 (0-0.4); Eosinophil % 0.8 % (0.00-5.0); Eosinophil (Absolute #) 0.08 (0-0.5); Hematocrit 42.6 % (35-47); Hemoglobin 13.7 gm/dl (12.0-16.0); Lymphocyte (Absolute #) 1.07 (1.0-4.6); Lymphocytes % 10.9 % (24.0-44.0); Mean Corpuscular Hemoglobin 29.6 pg (26-32); Mean Corpuscular Hgb Concent. 32.2 g/dl (32-36); Mean Platelet Volume 9.8 fl (7.5-11.0); Monocyte (Absolute #) 1.44 (0.0-1.3); Monocytes % 14.6 % (0.0-12.0); Neutrophil % 73.5 % (36.0-66.0); Platelet Count 267 K/mm3 (150-450); Red Blood Count 4.63 M/mm3 (4.1-5.4); Red Cell Distribution Width 13.4 % (11.5-14.0); White Blood Count 9.8 K/mm3 (4.0-10.5)
[2020-07-12 16:56] LABS: Amphetamine,Urine NEGATIVE (NEGATIVE); Barbiturate,Urine NEGATIVE (NEGATIVE); Benzodiazepine,Urine NEGATIVE (NEGATIVE); Cocaine,Urine NEGATIVE (NEGATIVE); Methadone,Urine NEGATIVE (NEGATIVE); Opiate,Urine NEGATIVE (NEGATIVE); PCP,Urine NEGATIVE (NEGATIVE); THC,Urine POSITIVE (NEGATIVE)
[2020-07-12 16:58] LABS: Appearance SLIGHTLY CLOUDY (CLEAR); Bilirubin NEGATIVE (NEGATIVE); Blood MODERATE Ery/ul (0-5); Glucose NEGATIVE (NEGATIVE); Ketones NEGATIVE (NEGATIVE); Leukocyte Esterase SMALL (NEGATIVE); Mucus SLIGHT /HPF (NEGATIVE); Nitrite NEGATIVE (NEGATIVE); Protein,Urine Dip 30 (Negative); Specific Gravity 1.011 (1.005-1.025); Urobilinogen NEGATIVE mg/dL (0-1); WBC 26-50 /HPF (0-5)
[2020-07-12 17:07] LABS: ALKALINE PHOSPHATASE 65 U/L (38-126); ANION GAP 12.4 MEQ/L (5-15); BLOOD UREA NITROGEN 10 mg/dL (7-17); CHLORIDE 100 mmol/L (98-107); Calcium 9.4 mg/dL (8.4-10.2); Carbon Dioxide 30 mmol/L (22-30); Creatinine 1 0.89 mg/dL (0.52-1.04); EST GLOMERULAR FILTRATION RATE > 60.0 ML/MIN; Glucose 127 mg/dL (74-106); Potassium 4.4 mmol/L (3.5-5.1); SGOT/AST 19 U/L (14-36); SGPT/ALT 11 U/L (0-35); SODIUM 138 mmol/L (137-145); Total Protein 7.6 g/dL (6.3-8.2)
[2020-07-12] MEDS ORDERED: Zofran 4 MG/2 ML VIAL ONE (17:36)
[2020-07-12] MEDS ORDERED: ROCEPHIN 1 Gm-D5w 50 ml Bag** 1 G/50 ML IVPB IV STA (17:36)
[2020-07-12] MEDS ORDERED: ZOFRAN ODT 4 MG ONE (17:38)
[2020-07-12] MEDS ORDERED: Rocephin 1000 MG INJ IM ONE (17:43)
[2020-07-12] MEDS ORDERED: XYLOCAINE 1% HCL 20 ML MDV IJ ONE (17:45)
[2020-07-12] MEDS ORDERED: Rocephin 1000 MG INJ ONE (17:45)
[2020-07-12 17:46] VITALS: O2SAT 97
[2020-07-12 17:50] VITALS: BP 112/87; PULSE 77
[2020-07-12] MEDS ORDERED: ZOFRAN ODT 4 MG PO ONE (18:00)
--- NOTE | 2020-07-13 08:41 | XRAY ---
Indication: Left lower quadrant pain. Constipation. Multiple contiguous axial images obtained through the abdomen and pelvis without contrast. Comparison: September 12, 2018. Lung bases remain clear again with incidental right base calcified granuloma. Heart is not enlarged. Noncontrasted stomach and bowel loops are nonobstructed with normal appendix. There is again moderate diffuse scattered colonic fecal debris throughout. No free fluid/air. Remaining liver, gallbladder, pancreas, spleen, adrenal glands, kidneys, ureters, bladder, uterus, and aorta appear unremarkable for noncontrast exam. Osseous structures intact. Impression: 1. Again diffuse fecal stasis. 2. Remaining CT abdomen/pelvis without contrast exam is negative. Comment: Preliminary interpretation was made by [facility]. No critical discrepancy.
== END 2020-07-12 18:28 | disposition home or self-care (01) ==
LOC: ED 15:40
DX: N39.0 Urinary tract infection, site not specified (principal); B95.2 Enterococcus as the cause of diseases classified elsewhere
CPT/HCPCS: 36415; 74176; 80053; 80307; 81001; 85025; 87077; 87086; 87186; 96372; 99284; J0696; J2405; Q0162; A9270-GY

== ENCOUNTER 2020-09-10 18:15 | Emergency (ER) | payer OTHER ==
--- NOTE | 2020-09-10 18:40 | ERPHSYRPT ---
- History of Present Illness Time Seen by Provider: 09/10/20 18:30 Historian: patient Exam Limitations: no limitations Patient Subjective Stated Complaint: Pt stated that she began having pain in her left flank and today it began radiating to the LLQ Triage Nursing Assessment: Pt brought to the ER by her , hypertensive, rates pain 01/10, appears to be in extreme pain, diaphoretic, pulses normal Physician History: Patient is a 35-year-old female presents to our ED with acute onset left flank pain radiating to her left lower quadrant. Pain started just prior to arrival. Pain described as an ache that is constant. No trauma no fever. Patient is nauseous and mildly diaphoretic. Patient denies chest pain shortness of breath. Symptoms are moderate in intensity. No specific worsening or improving factors . Patient states she has history of constipation. Patient voices no other complaints concerns at this time. Timing/Duration: today Activities at Onset: none Quality: aching Abdominal Pain Onset Location: flank Pain Radiation: other (Pain radiates to left groin area.) Severity of Pain-Max: moderate Severity of Pain-Current: mild Modifying Factors: Improves With: nothing Associated Symptoms: nausea, neck pain Previous symptoms: no prior history Allergies/Adverse Reactions: No Known Drug Allergies Allergy (Verified 09/10/20 18:34) Home Medications: PARoxetine HCL [Paroxetine HCl] 40 mg PO DAILY 07/12/20 [History] clonazePAM [Clonazepam] 1 mg PO DAILY PRN PRN 07/12/20 [History] Hx Tetanus, Diphtheria Vaccination/Date Given: Yes Hx Influenza Vaccination/Date Given: No Hx Pneumococcal Vaccination/Date Given: No Travel Risk - International Travel Have you traveled outside of the country in past 3 weeks: No - Coronavirus Screening Are you exhibiting any of the following symptoms?: No Close contact with a COVID-19 positive Pt in past 14-21 Days: No - Vaccine Status Have you recieved a Covid-19 vaccination: No - Review of Systems Constitutional: No Symptoms, No Fever, No Chills Eyes: No Symptoms Ears, Nose, & Throat: No Symptoms Respiratory: No Symptoms, No Cough, No Dyspnea Cardiac: No Symptoms, No Chest Pain, No Edema, No Syncope Abdominal/Gastrointestinal: No Symptoms, No Abdominal Pain, No Nausea, No Vomiting, No Diarrhea Genitourinary Symptoms: No Symptoms, No Dysuria Musculoskeletal: No Symptoms, No Back Pain, No Neck Pain Skin: No Symptoms, No Rash Neurological: No Symptoms, No Dizziness, No Focal Weakness, No Sensory Changes Psychological: No Symptoms Endocrine: No Symptoms Hematologic/Lymphatic: No Symptoms Immunological/Allergic: No Symptoms All Other Systems: Reviewed and Negative - Past Medical History Pertinent Past Medical History: Yes Neurological History: No Pertinent History ENT History: No Pertinent History Cardiac History: No Pertinent History Respiratory History: No Pertinent History Endocrine Medical History: No Pertinent History Musculoskeletal History: No Pertinent History GI Medical History: No Pertinent History History: No Pertinent History Psycho-Social History: Depression, Anxiety Female Reproductive Disorders: No Pertinent History - Past Surgical History Past Surgical History: Yes Neuro Surgical History: No Pertinent History Cardiac: No Pertinent History Respiratory: No Pertinent History Gastrointestinal: No Pertinent History Genitourinary: No Pertinent History Musculoskeletal: No Pertinent History Female Surgical History: Tubal Ligation, Section, Other, Dilation & Curettage Other Surgical History: LEEP procedure - Social History Smoking Status: Current every day smoker How long have you smoked: 12 yrs Exposure to second hand smoke: Yes Drug Use: none Patient Lives Alone: No - Female History Hx Now: No (tubal) - Nursing Vital Signs Nursing Vital Signs: Initial Vital Signs Temperature 98.4 F 09/10/20 18:20 Pulse Rate 69 09/10/20 18:20 Blood Pressure 170/100 09/10/20 18:20 O2 Sat by Pulse Oximetry 100 09/10/20 18:20 Pain Scale Pain Intensity 5 - Physical Exam General Appearance: no apparent distress, alert Eye Exam: PERRL/EOMI, eyes nml inspection Ears, Nose, Throat Exam: normal ENT inspection, pharynx normal, moist mucous membranes Neck Exam: normal inspection, non-tender, supple, full range of motion Respiratory Exam: normal breath sounds, lungs clear, No respiratory distress Cardiovascular Exam: regular rate/rhythm, normal heart sounds Gastrointestinal/Abdomen Exam: soft, No tenderness, No mass Back Exam: normal inspection, normal range of motion, No CVA tenderness, No vertebral tenderness Extremity Exam: normal inspection, normal range of motion, pelvis stable Neurologic Exam: alert, 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, cooperative, normal mood/affect, nml cerebellar function, sensation nml, No motor deficits Skin Exam: normal color, warm, dry Lymphatic Exam: No adenopathy SpO2 Interpretation: normal SpO2: 100 O2 Delivery: Room Air - Course Nursing assessment & vital signs reviewed: Yes EKG Interpreted by Me: RATE, Sinus Rhythm, NORMAL AXIS, NORMAL INTERVALS - CT Exams Abdomen/Pelvis CT Interpretation: Tele-radiologist Report (Negative CT scan compared to 07/12/2020. Again mild diffuse fecal stasis. No new acute findings.) Ordered Tests: Active Orders 24 hr Category Date Time Status IV Insertion STAT Care 09/10/20 18:41 Active ABDOMEN AND PELVIS W/0 CONTRAS [CT] Stat Exams 09/10/20 18:41 Taken CBC W DIFF Stat Lab 09/10/20 18:45 Completed CMP Stat Lab 09/10/20 18:45 Completed HCG,QUALITATIVE URINE Stat Lab 09/10/20 18:45 Completed UA W/RFX UR CULTURE Stat Lab 09/10/20 18:45 Completed Urine Triage Profile Stat Lab 09/10/20 18:45 Completed Medication Summary Discontinued Medications Generic Name Dose Route Start Last Admin Trade Name Freq PRN Reason Stop Dose Admin Sodium Chloride 1,000 mls @ 999 mls/hr 09/10/20 18:41 09/10/20 20:50 Sodium Chloride 0.9% 1000 Ml IV 09/10/20 19:41 Infused .Q1H1M STA Infusion Sodium Chloride Confirm 09/10/20 18:52 Sodium Chloride 0.9% 1000 Ml Administered 09/10/20 18:53 Dose 1,000 mls @ ud .ROUTE .STK-MED ONE Ketorolac Tromethamine 30 mg 09/10/20 18:41 09/10/20 18:54 Toradol 30 Mg Injection IV 09/10/20 18:42 30 mg STAT ONE Administration Ketorolac Tromethamine Confirm 09/10/20 18:51 Toradol 30 Mg Injection Administered 09/10/20 18:52 Dose 30 mg .ROUTE .STK-MED ONE Lab/Rad Data: Laboratory Result Diagrams 09/10/20 18:45 09/10/20 18:45 Laboratory Results 09/10/20 09/10/20 09/10/20 Range/Units 18:45 18:45 18:45 WBC 11.7 H (4.0-10.5) K/mm3 RBC 4.64 (4.1-5.4) M/mm3 Hgb 13.8 (12.0-16.0) gm/dl Hct 42.6 (35-47) % MCV 91.8 (78-100) fl MCH 29.7 (26-32) pg MCHC 32.4 (32-36) g/dl RDW 13.9 (11.5-14.0) % Plt Count 260 (150-450) K/mm3 MPV 10.3 (7.5-11.0) fl Gran % 73.9 H (36.0-66.0) % Eos # (Auto) 0.16 (0-0.5) Absolute Lymphs (auto) 2.03 (1.0-4.6) Absolute Monos (auto) 0.82 (0.0-1.3) Lymphocytes % 17.4 L (24.0-44.0) % Monocytes % 7.0 (0.0-12.0) % Eosinophils % 1.4 (0.00-5.0) % Basophils % 0.3 (0.0-0.4) % Absolute Granulocytes 8.65 H (1.4-6.9) Basophils # 0.03 (0-0.4) Sodium 140 (137-145) mmol/L Potassium 3.7 (3.5-5.1) mmol/L Chloride 104 (98-107) mmol/L Carbon Dioxide 26 (22-30) mmol/L Anion Gap 13.8 (5-15) MEQ/L BUN 15 (7-17) mg/dL Creatinine 0.89 (0.52-1.04) mg/dL Estimated GFR > 60.0 ML/MIN Glucose 82 (74-106) mg/dL Calcium 9.5 (8.4-10.2) mg/dL Total Bilirubin 0.30 (0.2-1.3) mg/dL AST 28 (14-36) U/L ALT 13 (0-35) U/L Alkaline Phosphatase 55 (38-126) U/L Serum Total Protein 8.1 (6.3-8.2) g/dL Albumin 4.8 (3.5-5.0) g/dL Urine Color (YELLOW) Urine Appearance (CLEAR) Urine pH (5-6) Ur Specific [place] (1.005-1.025) Urine Protein (Negative) Urine Ketones (NEGATIVE) Urine Blood (0-5) Dusty/ul Urine Nitrite (NEGATIVE) Urine Bilirubin (NEGATIVE) Urine Urobilinogen (0-1) mg/dL Ur Leukocyte Esterase (NEGATIVE) Urine WBC (Auto) (0-5) /HPF Urine RBC (Auto) (0-2) /HPF U Epithel Cells (Auto) (FEW) /HPF Urine Bacteria (Auto) (NEGATIVE) /HPF Urine Mucus (Auto) (NEGATIVE) /HPF Urine Culture Reflexed (NO) Urine Glucose (NEGATIVE) mg/dL Urine HCG, Qual NEGATIVE (Negative) Urine Opiates Level (NEGATIVE) Ur Methadone (NEGATIVE) Urine Barbiturates (NEGATIVE) Ur Phencyclidine (PCP) (NEGATIVE) Urine Amphetamine (NEGATIVE) U Benzodiazepine Level (NEGATIVE) Urine Cocaine (NEGATIVE) Urine Marijuana (THC) (NEGATIVE) 09/10/20 09/10/20 Range/Units 18:45 18:45 WBC (4.0-10.5) K/mm3 RBC (4.1-5.4) M/mm3 Hgb (12.0-16.0) gm/dl Hct (35-47) % MCV (78-100) fl MCH (26-32) pg MCHC (32-36) g/dl RDW (11.5-14.0) % Plt Count (150-450) K/mm3 MPV (7.5-11.0) fl Gran % (36.0-66.0) % Eos # (Auto) (0-0.5) Absolute Lymphs (auto) (1.0-4.6) Absolute Monos (auto) (0.0-1.3) Lymphocytes % (24.0-44.0) % Monocytes % (0.0-12.0) % Eosinophils % (0.00-5.0) % Basophils % (0.0-0.4) % Absolute Granulocytes (1.4-6.9) Basophils # (0-0.4) Sodium (137-145) mmol/L Potassium (3.5-5.1) mmol/L Chloride (98-107) mmol/L Carbon Dioxide (22-30) mmol/L Anion Gap (5-15) MEQ/L BUN (7-17) mg/dL Creatinine (0.52-1.04) mg/dL Estimated GFR ML/MIN Glucose (74-106) mg/dL Calcium (8.4-10.2) mg/dL Total Bilirubin (0.2-1.3) mg/dL AST (14-36) U/L ALT (0-35) U/L Alkaline Phosphatase (38-126) U/L Serum Total Protein (6.3-8.2) g/dL Albumin (3.5-5.0) g/dL Urine Color YELLOW (YELLOW) Urine Appearance SLIGHTLY CLOUDY (CLEAR) Urine pH 5.0 (5-6) Ur Specific [place] 1.014 (1.005-1.025) Urine Protein NEGATIVE (Negative) Urine Ketones NEGATIVE (NEGATIVE) Urine Blood SMALL (0-5) Dusty/ul Urine Nitrite NEGATIVE (NEGATIVE) Urine Bilirubin NEGATIVE (NEGATIVE) Urine Urobilinogen NEGATIVE (0-1) mg/dL Ur Leukocyte Esterase NEGATIVE (NEGATIVE) Urine WBC (Auto) 0-2 (0-5) /HPF Urine RBC (Auto) NONE (0-2) /HPF U Epithel Cells (Auto) RARE (FEW) /HPF Urine Bacteria (Auto) NONE (NEGATIVE) /HPF Urine Mucus (Auto) SLIGHT (NEGATIVE) /HPF Urine Culture Reflexed NO (NO) Urine Glucose NEGATIVE (NEGATIVE) mg/dL Urine HCG, Qual (Negative) Urine Opiates Level NEGATIVE (NEGATIVE) Ur Methadone NEGATIVE (NEGATIVE) Urine Barbiturates NEGATIVE (NEGATIVE) Ur Phencyclidine (PCP) NEGATIVE (NEGATIVE) Urine Amphetamine NEGATIVE (NEGATIVE) U Benzodiazepine Level NEGATIVE (NEGATIVE) Urine Cocaine NEGATIVE (NEGATIVE) Urine Marijuana (THC) POSITIVE (NEGATIVE) - Progress Progress: improved Progress Note: Patient reassessed. She is currently pain-free. CT scan reveals constipation. No kidney stone. Labs essentially nonremarkable. No UTI. Will discharge at this time. Patient agrees to follow-up with her primary care doctor within 48 hours for reevaluation. 09/10/20 20:55 Counseled pt/family regarding: lab results, diagnosis, need for follow-up, rad results - Departure Departure Disposition: Home Clinical Impression: Flank pain, Marijuana use, Constipation Condition: Stable Critical Care Time: No Referrals: ASHLIE MEDRANO JR [Primary Care Provider] - Instructions: Constipation in Adults, Flank Pain Additional Instructions: Discharge/Care Plan PHILIPPE PEPE was seen on 09/10/20 in the Emergency Room. The patient was counseled regarding Diagnosis,Lab results, Imaging studies, need for follow up and when to return to the Emergency Room. Prescriptions given: Discharge Note I have spoken with the patient and/or caregivers. I have explained the patient's condition, diagnosis and treatment plan based on the information available to me at this time. I have answered the patient's and/or caregiver's questions and addressed any concerns. The patient and/or caregivers have as good understanding of the patient's diagnosis, condition and treatment plan as can be expected at this point. The vital signs have been stable. The patient's condition is stable and appropriate for discharge from the emergency department. The patient will pursue further outpatient evaluation with the primary care physician or other designated or consulting physician as outlined in the discharge instructions. The patient and/or caregivers are agreeable to this plan of care and follow-up instructions have been explained in detail. The patient and/or caregivers have received these instruction. The patient/and or caregivers are aware that any significant change in condition or worsening of symptoms should prompt an immediate return to this or the closest emergency department or call 911.
[2020-09-10] MEDS ORDERED: TORAdol 30 mg Injection IV ONE (18:41)
[2020-09-10] MEDS ORDERED: Sodium Chloride 0.9% 1000 ML 1,000 ML IV STA (18:41)
[2020-09-10] MEDS ORDERED: TORAdol 30 mg Injection ONE (18:51)
[2020-09-10] MEDS ORDERED: Sodium Chloride 0.9% 1000 ML 1,000 ML ONE (18:52)
[2020-09-10 18:55] LABS: Absolute Neutrophil Ct (ANC) 8.65 (1.4-6.9); BASOPHIL % 0.3 % (0.0-0.4); Basophil (Absolute #) 0.03 (0-0.4); Eosinophil % 1.4 % (0.00-5.0); Eosinophil (Absolute #) 0.16 (0-0.5); Hematocrit 42.6 % (35-47); Hemoglobin 13.8 gm/dl (12.0-16.0); Lymphocyte (Absolute #) 2.03 (1.0-4.6); Lymphocytes % 17.4 % (24.0-44.0); Mean Cell Volume 91.8 fl (78-100); Mean Corpuscular Hemoglobin 29.7 pg (26-32); Mean Corpuscular Hgb Concent. 32.4 g/dl (32-36); Mean Platelet Volume 10.3 fl (7.5-11.0); Monocyte (Absolute #) 0.82 (0.0-1.3); Neutrophil % 73.9 % (36.0-66.0); Platelet Count 260 K/mm3 (150-450); Red Blood Count 4.64 M/mm3 (4.1-5.4); Red Cell Distribution Width 13.9 % (11.5-14.0); White Blood Count 11.7 K/mm3 (4.0-10.5)
[2020-09-10 19:08] LABS: Appearance SLIGHTLY CLOUDY (CLEAR); Bilirubin NEGATIVE (NEGATIVE); Blood SMALL Ery/ul (0-5); Epithelial Cells RARE /HPF (FEW); Glucose NEGATIVE (NEGATIVE); Ketones NEGATIVE (NEGATIVE); Leukocyte Esterase NEGATIVE (NEGATIVE); Mucus SLIGHT /HPF (NEGATIVE); Nitrite NEGATIVE (NEGATIVE); Protein,Urine Dip NEGATIVE (Negative); Specific Gravity 1.014 (1.005-1.025); Urobilinogen NEGATIVE mg/dL (0-1); WBC 0-2 /HPF (0-5)
[2020-09-10 19:21] LABS: ALBUMIN 4.8 g/dL (3.5-5.0); ALKALINE PHOSPHATASE 55 U/L (38-126); ANION GAP 13.8 MEQ/L (5-15); Amphetamine,Urine NEGATIVE (NEGATIVE); BLOOD UREA NITROGEN 15 mg/dL (7-17); Barbiturate,Urine NEGATIVE (NEGATIVE); Benzodiazepine,Urine NEGATIVE (NEGATIVE); CHLORIDE 104 mmol/L (98-107); Calcium 9.5 mg/dL (8.4-10.2); Carbon Dioxide 26 mmol/L (22-30); Cocaine,Urine NEGATIVE (NEGATIVE); Creatinine 1 0.89 mg/dL (0.52-1.04); EST GLOMERULAR FILTRATION RATE > 60.0 ML/MIN; Glucose 82 mg/dL (74-106); Methadone,Urine NEGATIVE (NEGATIVE); Opiate,Urine NEGATIVE (NEGATIVE); PCP,Urine NEGATIVE (NEGATIVE); Potassium 3.7 mmol/L (3.5-5.1); SGOT/AST 28 U/L (14-36); SGPT/ALT 13 U/L (0-35); SODIUM 140 mmol/L (137-145); THC,Urine POSITIVE (NEGATIVE); Total Protein 8.1 g/dL (6.3-8.2)
[2020-09-10 20:39] VITALS: O2SAT 100
[2020-09-10 20:49] VITALS: BP 116/64; PULSE 73
--- NOTE | 2020-09-11 08:54 | XRAY ---
Indication: Left flank pain and vomiting. Multiple contiguous axial images obtained through the abdomen and pelvis without contrast using renal stone protocol. Comparison: July 12, 2020. Lung bases again demonstrate small right lower lobe calcified granuloma. Minimal bilateral dependent atelectasis without infiltrate or effusion. Heart not enlarged. No renal calculus or evidence for obstructive uropathy in either system. Noncontrasted stomach and bowel loops appear nonobstructed again with normal appendix. There remains mild diffuse scattered colonic fecal debris throughout. No free fluid/air. Remaining liver, gallbladder, pancreas, spleen, adrenal glands, kidneys, ureters, bladder, uterus, and aorta are unremarkable for noncontrast exam. Osseous structures remain intact. Impression: 1. Continued negative renal calculus or evidence for obstructive uropathy. 2. Again incidental mild diffuse fecal stasis. 3. Remaining CT abdomen/pelvis without contrast exam is negative.
== END 2020-09-10 20:57 | disposition home or self-care (01) ==
LOC: ED 18:15
DX: R10.9 Unspecified abdominal pain (principal); F12.90 Cannabis use, unspecified, uncomplicated; K59.00 Constipation, unspecified
CPT/HCPCS: 36000; 36415; 74176; 80053; 80307; 81001; 84703; 85025; 96360; 96374; 99284; J1885